=== PATIENT | female | born 1955 | race Caucasian/White ===

== ENCOUNTER → 2017-11-13 | Outpatient (CLI) | payer OTHER ==
[~2017-11-13] VITALS: Ht 162.6 cm; Wt 86.4 kg
[~2017-11-13] MED LIST: AMAR4TAB PO; BENZOCAINE 20% ORAL SPR 60 ML CAN OROPHARYNG ONE; CALC600T34 PO; FEXO180 PO; LEVO112T17 PO; LIDOCAINE HCL 2% JELLY 5 ML SYRINGE TOPICAL ONE; METF-324 PO; SERT100 PO; TAB-TAB PO; novolin 70/30 SC
[2017-11-13 07:43] VITALS: BP 137/65; PULSE 69; RESP 18; TEMP 98.4; O2SAT 99
== END ==
LOC: HEND 07:08
PROVIDERS: ATTEND Internal Medicine Gastroenterology
DX: K44.9 Diaphragmatic hernia without obstruction or gangrene (principal); K21.9 Gastro-esophageal reflux disease without esophagitis
CPT/HCPCS: 91010

== ENCOUNTER 2018-01-03 13:00 | Observation (INO) | payer OTHER ==
[~2018-01-03] VITALS: Ht 162.6 cm; Wt 89.2 kg
[2018-01-09] MEDS ORDERED: CALC1TAB87 PO (15:16)
[2018-01-09] MEDS ORDERED: FEXO15TA PO (15:19)
[2018-01-09] MEDS ORDERED: GLIM4TAB PO (15:19)
[2018-01-09] MEDS ORDERED: ZOLO100T PO (15:19)
[2018-01-09] MEDS ORDERED: DAILTAB38 PO (15:19)
[2018-01-09] MEDS ORDERED: METF1000 PO (15:19)
[2018-01-09] MEDS ORDERED: NOVO7030P2 SQ (15:19)
[2018-01-09] MEDS ORDERED: LEVO112T29 PO (15:19)
[2018-01-10] MEDS ORDERED: VITACAP7 PO (10:26)
[2018-01-10] MEDS ORDERED: ZOLO100T PO (10:26)
[2018-01-10] MEDS ORDERED: NOVOLOGSS SQ (10:26)
[2018-01-10] MEDS ORDERED: LUTE6CAP2 PO (10:26)
[2018-01-10] MEDS ORDERED: SIMV5TAB3 PO (10:26)
[2018-01-10] MEDS ORDERED: VENTAER INH (10:29)
[2018-01-10] MEDS ORDERED: LACTATED RINGER'S 1000 ML IV PRN (10:30)
[2018-01-10] MEDS ORDERED: CEFAZOLIN INJ 2,000 MG in SODIUM CHLORIDE 0.9% INJ 100 ML IV SCH (10:30)
[2018-01-10] MEDS ORDERED: SODIUM CHLORID 0.9% 500 ML IV PRN (10:30)
[2018-01-10] MEDS ORDERED: ONDANSETRON HCL 4 MG/2 ML VIAL IV PUSH SCH (10:30)
[2018-01-10] MEDS ORDERED: CHLORHEXIDINE GLUCONATE 2 % 1 PACK (2 CLOTHS) TOPICAL PRN (10:30)
[2018-01-10] MEDS ORDERED: ACETAMINOPHEN 1000 MG/100 ML 100 ML IV SCH (10:30)
[2018-01-10] MEDS ORDERED: METOPROLOL TARTRATE 25 MG TAB PO PRN (10:30)
[2018-01-10] MEDS ORDERED: POVIDONE IODINE 5% (ANTISEPSIS KIT) 4 APPLICATIONS EACH NARE PRN (10:30)
[2018-01-10] MEDS ORDERED: PROPOFOL 200 MG/20 ML AMP IV ONE (12:00)
[2018-01-10] MEDS ORDERED: ESMOLOL HCL 100 MG/10 ML VIAL IV ONE (12:00)
[2018-01-10] MEDS ORDERED: ONDANSETRON HCL 4 MG/2 ML VIAL IV ONE (12:00)
[2018-01-10] MEDS ORDERED: LACTATED RINGER'S 1000 ML INJ 1,000 ML IV ONE (12:00)
[2018-01-10] MEDS ORDERED: NORMOSOL R INJ 2,000 ML IV ONE (12:00)
[2018-01-10] MEDS ORDERED: LIDOCAINE HCL 1% PF 5 ML SYRINGE OTHER ONE (12:00)
[2018-01-10] MEDS ORDERED: PHENYLEPH/NS 1000 MCG/10 ML SYR IV ONE (12:00)
[2018-01-10] MEDS ORDERED: DEXAMETHASONE SOD PHOS 4 MG/ML VIAL IV ONE (12:00)
[2018-01-10] MEDS ORDERED: ROCURONIUM INJ 50 MG/5 ML SYRINGE IV PUSH ONE ×2 (12:00→18:11)
[2018-01-10] MEDS ORDERED: ceFAZolin INJ 1,000 MG VIAL ONE (14:03)
[2018-01-10] MEDS ORDERED: BUPIVACAINE/EPINEPHRINE 0.25% 50 ML VIAL ONE (14:05)
[2018-01-10] MEDS ORDERED: APREPITANT 40 MG CAP ONE (14:40)
[2018-01-10] MEDS ORDERED: SUGAMMADEX SODIUM 200 MG/2 ML VIAL IV PUSH ONE (18:11)
[2018-01-10] MEDS ORDERED: MORPHINE SULFATE 30 MG/30 ML PCA IV SCH (18:45)
[2018-01-10] MEDS ORDERED: MAGNESIUM HYDROXIDE SUSP 30 ML CUP PO PRN (18:45)
[2018-01-10] MEDS ORDERED: Post-op Orders (for Pharmacy) XX ONE (18:45)
[2018-01-10] MEDS ORDERED: ONDANSETRON HCL 4 MG/2 ML VIAL IV PUSH PRN (18:45)
[2018-01-10] MEDS ORDERED: NALOXONE HCL 0.4 MG/ML AMP IV PUSH PRN (18:45)
[2018-01-10] MEDS ORDERED: METOCLOPRAMIDE HCL 10 MG/2 ML VIAL IVS PRN (18:45)
[2018-01-10] MEDS ORDERED: SODIUM CHLORIDE 0.9% FLUSH 10 ML FLUSH IV FLUSH PRN (18:45)
[2018-01-10] MEDS ORDERED: PROMETHAZINE INJ 25 MG/ML VIAL ONE ×2 (19:00→19:36)
[2018-01-10] MEDS ORDERED: DO NOT ADM ANY ANTICOAGULANT DRUGS PRN (19:03)
[2018-01-10] MEDS ORDERED: *RESP: ALBUTEROL 2.5 MG/3 ML NEB (PRN) PERIprocedural Use ONLY NEB ONE (19:14)
[2018-01-10] MEDS ORDERED: MORPHINE SULFATE 4 MG/ML INJ ONE (19:25)
[2018-01-10] MEDS ORDERED: LORazepam 2 MG/ML VIAL ONE (19:46)
[2018-01-10] MEDS: metroNIDAZOLE 500 MG INJ 100 ML IV SCH (20:00)
[2018-01-10] MEDS: SODIUM CHLOR 0.9% 1000 ML INJ 1,000 ML IV SCH (20:00)
[2018-01-10] MEDS: SODIUM CHLORIDE 0.9% FLUSH 10 ML FLUSH IV FLUSH SCH (21:00)
[2018-01-10] MEDS: PCA - TOTAL MG MORPHINE DELIVERED PER SHIFT SCH (22:00)
[2018-01-10 22:45] VITALS: BP 112/81; PULSE 75; RESP 18; TEMP 98.3; O2SAT 96
[2018-01-11] VITALS (8 sets, daily range): BP systolic 93–125; BP diastolic 50–83; PULSE 71–95; RESP 17–20; TEMP 97.7–98.9; O2SAT 92–96
[2018-01-11] MEDS: metroNIDAZOLE 500 MG INJ 100 ML IV SCH ×2 (05:10→12:31)
[2018-01-11] MEDS: SODIUM CHLOR 0.9% 1000 ML INJ 1,000 ML IV SCH (06:00)
[2018-01-11] MEDS: PCA - TOTAL MG MORPHINE DELIVERED PER SHIFT SCH (06:00)
[2018-01-11] MEDS: SODIUM CHLORIDE 0.9% FLUSH 10 ML FLUSH IV FLUSH SCH ×2 (09:00→21:00)
[2018-01-11] MEDS ORDERED: DEXTROSE 50% IN WATER 50 ML VIAL(D50) IV PUSH PRN (10:15)
[2018-01-11] MEDS ORDERED: GLUCAGON 1 MG/ML VIAL OTHER PRN (10:15)
[2018-01-11] MEDS ORDERED: PILL SPLITTER OTHER PRN (10:30)
[2018-01-11] MEDS ORDERED: HYDR0.1S8 PO (11:40)
[2018-01-11] MEDS ORDERED: ACETAMINOPHEN 325MG/HYDROcodone 7.5MG/15ML UDC PO PRN (11:45)
[2018-01-11] MEDS: LEVOTHYROXINE SODIUM 112 MCG TAB PO SCH (12:32)
[2018-01-11] MEDS: SERTRALINE HCL 50 MG TAB PO SCH (12:32)
[2018-01-11] MEDS ORDERED: KETO10 PO (13:06)
--- NOTE | 2018-01-11 13:08 | HHI.PR ---
Subjective Subjective Notes Pain well controlled. Tolerating clears Objective Vitals/I&O Vital Signs Date Time Temp Pulse Resp B/P (MAP) Pulse Ox O2 Delivery O2 Flow Rate FiO2 01/11/18 11:55 97.8 78 18 93/50 (64) 93 01/10/18 20:45 Simple Mask 4 Abdomen: Post-op tenderness Extremities: Perfused Wound Wound : Wound Location: Abdomen Appearance: Clean & Dry A/P Assessment and Plan 62yo F POD#1 robot-assisted laparoscopic hiatal hernia repair -D/C BEEF BONER, transition to oral pain control -Increase to full liquids -Continue with frequent ambulation The exam, history, and the medical decision-making described in the above note were completed with the assistance of the mid-level provider. I reviewed and agree with the findings presented. I attest that I had a [id number] encounter with the patient on the same day, and personally performed and documented my assessment and findings in the medical record. Discharge Planning D/C home today Kenyetta Narvaez Jan 11, 2018 13:08 Nicolas Beard MD Jan 24, 2018 21:34
[2018-01-11] MEDS ORDERED: ENOXAPARIN SODIUM 40 MG/0.4 ML SYRINGE SQ SCH (18:00)
[2018-01-11] MEDS: ACETAMINOPHEN 325MG/HYDROcodone 7.5MG/15ML UDC PO PRN (22:32)
[2018-01-12 04:25] VITALS: BP 107/60; PULSE 67; RESP 17; TEMP 97.6; O2SAT 92
[2018-01-12 07:41] VITALS: BP 120/67; PULSE 69; RESP 19; TEMP 97.8; O2SAT 92
[2018-01-12] MEDS: SODIUM CHLORIDE 0.9% FLUSH 10 ML FLUSH IV FLUSH SCH (09:00)
[2018-01-12] MEDS: LEVOTHYROXINE SODIUM 112 MCG TAB PO SCH (09:12)
[2018-01-12] MEDS: SERTRALINE HCL 50 MG TAB PO SCH (09:13)
[2018-01-12] MEDS: ACETAMINOPHEN 325MG/HYDROcodone 7.5MG/15ML UDC PO PRN ×2 (10:27→16:58)
[2018-01-12 11:31] VITALS: BP 129/74; PULSE 83; RESP 19; TEMP 98.6; O2SAT 92
[2018-01-12 15:40] VITALS: BP 95/54; PULSE 78; RESP 19; TEMP 98.7; O2SAT 93
--- NOTE | 2018-02-20 12:51 | MP ---
cc: Nicolas Beard MD DATE OF OPERATION: 01/10/2018 DATE OF : 1955 DATE OF OPERATION: 01/10/2018. PREOPERATIVE DIAGNOSIS: Paraesophageal hernia with reflux. POSTOPERATIVE DIAGNOSIS: Paraesophageal hernia with reflux. PROCEDURE PERFORMED: 1. Robotic-assisted laparoscopic paraesophageal hernia repair with partial fundoplication with Bio-A mesh. 2. Hernia repair with partial fundoplication, 270 degree wrap. SURGEON: Nicolas Beard MD BOILER OR ENGINE OPERATOR: Dr. Stephan Olsen. ANESTHESIA: General endotracheal anesthesia. ESTIMATED BLOOD LOSS: Scant. FINDINGS: Large paraesophageal hernia. SPECIMENS: None. COMPLICATIONS: None. DESCRIPTION OF PROCEDURE: The patient was brought into the operating room and placed on the operating table in a supine position. A bilateral sequential inflation device was placed on the lower extremities. General anesthesia was instituted. Antibiotics were initiated. The abdomen was prepped and draped sterilely. A point 18 cm distal from the xiphoid in the midline was anesthetized with 0.25% Marcaine with epinephrine. A skin incision was made. A 12 mm OptiView port was placed under direct vision and pneumoperitoneum created. Under direct vision a 5 mm left upper quadrant, 8 mm robotic left upper quadrant, 8 mm robotic port in the right upper quadrant and a 5 mm port placed in the right upper quadrant. Prior to placement of all ports the skin and peritoneum were anesthetized with 0.25% Marcaine with epinephrine. The patient was placed in reverse Trendelenburg position left side up. A Socorro-Flex retractor was placed. The left lobe of the liver was retracted. Findings as above. 3-0 silk sutures were placed into the abdominal cavity as well as a Elma drain and Ray-Christen gauze. At this point the laparoscopic tower was removed from the patient's bedside and a da Marisa robot was docked at the patient's bedside. I then broke scrub and went to the console. The hepatogastric ligament was then opened. The stomach was retracted into the abdominal cavity. The left crura of the diaphragm was dissected inferiorly. A Elma drain was placed around the stomach to retract it into the abdominal cavity further. The crura of the diaphragm was dissected anteriorly and posteriorly both left and right. The hernia sac was retracted into the abdominal cavity. The hernia sac was excised. The GE junction was mobilized into the abdominal cavity, dissected out the distal esophagus and the mediastinum. The crura of the diaphragm was approximated with 0 silk suture in a [id number] manner. Three interrupted stitches were placed inferiorly. The da Marisa robot was then undocked. The laparoscopic tower was connected and brought back to bedside. The stan and gauze was removed from the abdominal cavity. The operative field inspected and hemostasis was present. The CO2 was released, all ports were removed. All skin incisions were closed with 4-0 Monocryl. The abdominal wall was cleaned and a sterile dressing placed. The patient was awakened and taken to the recovery room. All instrument and sponge counts were reported as correct at the end of the procedure. MD EREN Jonas/FELIPE , 07:17 PM , 07:53 PM
== END 2018-01-12 17:16 | disposition home or self-care (01) ==
LOC: HSDI 01-10 09:10 → INTOOBSV 01-10 09:10 → N06A 01-10 21:35
PROVIDERS: ADMIT Surgery; ATTEND Surgery
DX: K44.9 Diaphragmatic hernia without obstruction or gangrene (principal); Z86.73 Personal history of transient ischemic attack (TIA), and cerebral infarction without residual deficits; E78.5 Hyperlipidemia, unspecified; J45.909 Unspecified asthma, uncomplicated; E11.9 Type 2 diabetes mellitus without complications
CPT/HCPCS: 00790; 43282; 82948; 94150; 96365; 96367; 96372; 96376; G0378; J0131; J0690; J1100; J1650; J2060; J2270; J2370; J2405; J2550; J3010; J7030; J7120; J7613; J8501

== ENCOUNTER 2018-08-06 15:34 | Inpatient (IN) ==
[2018-08-06] MEDS ORDERED: Bisacodyl 10 MG Supp RECTAL PRN (17:49)
[2018-08-06] MEDS ORDERED: Acetaminophen 325 MG Tablet PO PRN (17:49)
[2018-08-06] MEDS ORDERED: Temazepam 15 MG Capsule PO PRN (17:49)
[2018-08-06] MEDS ORDERED: Dextrose 50% in Water 50 ML Vial IV.PUSH PRN (17:54)
[2018-08-06] MEDS ORDERED: Morphine Inj 4 MG/ML Vial IV.PUSH PRN (18:35)
--- NOTE | 2018-08-06 18:47 | P.HPIM ---
History of Present Illness Primary Care Physician: UNKNOWN History of Present Illness: Pt 62 yo female with Diabetes who underwent paraesophageal hernia repair in 01/24 at [place]. Pt says post op she had alot of severe nausea and vomiting from anesthesia. After dc she had problems with DKA and severe n/v with recurrent admissions to [facility]. She underwent EGD and balloon dilation on 07/[address] Vaca. Pt was readmitted on 08/02 and had another balloon dilation on 08/03. On 08/05 her Esophagram showed severe stricture at the GE junction felt to be extrinsic compression from large paraesophageal hernia. Pt was transferred here for reduction by Dr Beard. Her bg on arrival is 114. her daughter is at bedside. She has been tolerating a full liquid diet. PMH: gerd diabetes. recurrent dka hgba1c 07/25 was 6.7 paraesophageal hernia with repair 01/24 jonas thyroiditis depression blepharoplasty cholecystectomy breast bx gurvinder asthma allergic rhinitis gerd SH: quit etoh 1month aga before that 1 glass whiskey per day quit tobacco 4 1/2 yrs ago after smoking at least 1ppd from age 15 FH: noncontributory Diagnosis (1) Paraesophageal hernia: (2) Diabetes: Inpatient Certification Inpatient Certification: I certify that the inpatient services were ordered in accordance with Medicare regulations governing the order. This includes certification that hospital inpatient services are reasonable and necessary and in the case of services not specified as inpatient-only under 42 CFR 419.22(n), that they are appropriately provided as inpatient services in accordance to with the 2-midnight benchmark under 43 CFR 412.3(e) Estimated Total Length of Stay (Days): 3 Plans for Post Hospital Care: Home Medications and Allergies Allergies Allergy/AdvReac Type Severity Reaction Status Date / Time mushroom Allergy Severe itch/rash Unverified 05/23/17 21:53 estradiol Allergy Intermediate RAPID Unverified 05/23/17 21:53 HEARTRATE estrogens, conjugated Allergy Intermediate RAPID Unverified 05/23/17 21:53 HEARTRATE nickel Allergy Skin Verified 08/06/18 17:54 Discoloration erythromycin base AdvReac Diarrhea Verified 08/06/18 17:54 BEE STINGS Allergy Severe throat Uncoded 01/10/18 10:18 swelling [facility] [place] Allergy Intermediate can't Uncoded 01/10/18 10:18 breath bandaids Allergy Mild red rash Uncoded 11/14/07 06:51 Home Medications Medication Instructions Recorded Confirmed Type albuterol sulfate [Ventolin HFA] INHALATION Q4HR 08/06/18 History levothyroxine 100 mcg PO DAILY 08/06/18 08/06/18 History lisinopril 5 mg PO DAILY 08/06/18 08/06/18 History omeprazole 40 mg PO DAILY 08/06/18 08/06/18 History promethazine [Phenergan] 25 mg [place] Q6H PRN 08/06/18 08/06/18 History sertraline [Zoloft] 75 mg PO DAILY 08/06/18 08/06/18 History simvastatin 5 mg PO QPM 08/06/18 08/06/18 History Active Medications: Active Medications Acetaminophen (Tylenol) 650 mg PO Q4H PRN PRN Reason: Temp > 100.4 Bisacodyl (Dulcolax Supp) 10 mg RECTAL DAILY PRN PRN Reason: SEVERE CONSITIPATION Dextrose (D50w Vial) 50 ml IV.PUSH UNSCH PRN PRN Reason: PER HYPOGLYCEMIA PROTOCOL Enoxaparin Sodium (Lovenox Inj) 40 mg SQ Q24H [facility] Glucagon (Glucagon Inj) 1 mg OTHER PRN PRN PRN Reason: for Hypoglycemia Protocol Potassium Chloride/Dextrose/Sod Cl (D5w/Ns + Kcl 20 Meq Inj) 1,000 mls @ 50 mls /hr IV.CONT .Q20H [facility] Insulin Aspart (Novolog Insulin Correctional Sugar Inj) 0 unit SQ Q4H [facility]; Protocol Levothyroxine Sodium (Synthroid) 100 mcg PO DAILY@0600 [facility] Morphine Sulfate (Morphine Inj) 2 mg IV.PUSH Q3H PRN PRN Reason: pain 3-10 Ondansetron HCl (Zofran Inj) 4 mg IV.PUSH Q6H PRN PRN Reason: NAUSEA OR VOMITING Pantoprazole Sodium (Protonix Inj) 40 mg IV.PUSH Q12H [facility] Promethazine HCl (Phenergan) 25 mg PO Q6H PRN PRN Reason: n/v not relieved with zofran Sertraline HCl (Zoloft) 75 mg PO DAILY [facility] Temazepam (Restoril) 15 mg PO HS PRN PRN Reason: INSOMNIA Physical Exam Narrative: heart reg lung cta abd s/nt/nabs ext no edema Caprini VTE Risk Assessment Caprini VTE Risk Assessment: Moderate/High Risk (score >= 2) Caprini Risk Assessment Model: Point Value = 1 Point Value = 2 Point Value = 3 Point Value = 5 Age 41-60 Minor surgery BMI > 25 kg/m2 Swollen legs Varicose veins or History of unexplained or recurrent spontaneous Oral contraceptives or hormone replacement Sepsis (< 1 month) Serious lung disease, including pneumonia (< 1 month) Abnormal pulmonary function Acute myocardial infarction Congestive heart failure (< 1 month) History of inflammatory bowel disease Medical patient at bed rest Age 61-74 Arthroscopic surgery Major open surgery (> 45 min) Laparoscopic surgery (> 45 min) Malignancy Confined to bed (> 72 hours) Immobilizing plaster cast Central venous access Age >= 75 History of VTE Family history of VTE Factor V Leiden Prothrombin [id number] Lupus anticoagulant Anticardiolipin antibodies Elevated serum homocysteine Heparin-induced thrombocytopenia Other congenital or acquired thrombophilia Stroke (< 1 month) Elective arthroplasty Hip, pelvis, or leg fracture Acute spinal cord injury (< 1 month) Prophylaxis Regimen: Total Risk Factor Score Risk Level Prophylaxis Regimen 0-1 Low Early ambulation 2 Moderate Order ONE of the following: *Sequential Compression Device (SCD) *Heparin 5000 units SQ BID 3-4 Higher Order ONE of the following medications: *Heparin 5000 units SQ TID *Enoxaparin/Lovenox 40 mg SQ daily (WT < 150 kg, CrCl > 30 mL/min) *Enoxaparin/Lovenox 30 mg SQ daily (WT < 150 kg, CrCl > 10-29 mL/min) *Enoxaparin/Lovenox 30 mg SQ BID (WT < 150 kg, CrCl > 30 mL/min) AND/OR *Sequential Compression Device (SCD) 5 or more Highest Order ONE of the following medications: *Heparin 5000 units SQ TID (Preferred with Epidurals) *Enoxaparin/Lovenox 40 mg SQ daily (WT < 150 kg, CrCl > 30 mL/min) *Enoxaparin/Lovenox 30 mg SQ daily (WT < 150 kg, CrCl > 10-29 mL/min) *Enoxaparin/Lovenox 30 mg SQ BID (WT < 150 kg, CrCl > 30 mL/min) AND *Sequential Compression Device (SCD) Assessment and Plan Assessment (1) Paraesophageal hernia: Code(s): K44.9 - Diaphragmatic hernia without obstruction or gangrene Status: Acute (2) Diabetes: Code(s): E11.9 - Type 2 diabetes mellitus without complications Status: Acute Plan consult to Dr Matthews. planned hernia reduction for Wed. cont liquid diet d5ns with kcl chec, bmp now and cmp, cbc, coags in AM monitor bg q4h for now and SSI. add basal as needed. insulin pump off. iv ppi. prn anti emetics cont ssri and thyroid home meds. dvt prophyaxis. lovenox. prn pain control H&P: Quality VTE Deep Vein Thrombosis/Pulmonary Embolism Present on Admission: No
[2018-08-06] MEDS: KCL 20 mEq/D5W/NaCl 0.9% Inj 1,000 ML IV.CONT SCH (19:05)
[2018-08-06 20:18] LABS: Calcium 7.8 mg/dL (8.5-10.1); Carbon Dioxide 22.4 meq/L (21.0-32.0); Potassium 3.6 meq/L (3.5-5.1)
[2018-08-06] MEDS ORDERED: Insulin NovoLOG Aspart Correctional Sugar Inj SQ SCH (21:00)
[2018-08-06] MEDS ORDERED: Senna/Docusate Sodium 8.6/50 MG Tablet PO SCH (21:00)
[2018-08-06] MEDS: Insulin NovoLOG Aspart Correctional Sugar Inj SQ SCH (21:07)
[2018-08-06] MEDS: Pantoprazole Inj 40 MG Vial IV.PUSH SCH (21:08)
[2018-08-07] MEDS: Insulin NovoLOG Aspart Correctional Sugar Inj SQ SCH ×5 (05:10→20:56)
[2018-08-07 07:25] LABS: Baso # (Auto) 0.1 th/mm3 (0.0-0.2); Baso % (Auto) 1.1 % (0.0-2.0); Eos # (Auto) 0.5 th/mm3 (0.0-0.4); Hematocrit 33.9 % (35.0-46.0); Hemoglobin 11.7 gm/dL (11.6-15.3); Lymph # (Auto) 1.8 th/mm3 (1.0-4.8); Lymph % (Auto) 34.8 % (9.0-44.0); Mean Corpuscular HGB Conc 34.4 % (32.0-36.0); Mean Corpuscular Hemoglobin 32.7 pg (27.0-34.0); Mean Platelet Volume 8.5 fL (7.0-11.0); Mono # (Auto) 0.4 th/mm3 (0.0-0.9); Mono % (Auto) 7.9 % (0.0-8.0); Neut # (Auto) 2.4 th/mm3 (1.8-7.7); Neut % (Auto) 47.2 % (16.0-70.0); Platelet Count 220 th/mm3 (150-450); Red Blood Count 3.57 mil/mm3 (4.00-5.30); Red Cell Distribution Width 13.8 % (11.6-17.2); White Blood Count 5.1 th/mm3 (4.0-11.0)
[2018-08-07 07:26] LABS: INR 1.1 Ratio; Prothrombin Time 11.3 sec (9.8-11.6)
[2018-08-07] MEDS: Levothyroxine 100 MCG Tablet PO SCH (07:32)
[2018-08-07 07:44] LABS: Albumin 2.7 g/dL (3.4-5.0); Anion Gap 10 meq/L (5-15); Aspartate Aminotransferase 20 U/L (15-37); Blood Urea Nitrogen 3 mg/dL (7-18); Calcium 7.5 mg/dL (8.5-10.1); Carbon Dioxide 24.5 meq/L (21.0-32.0); Chloride 109 meq/L (98-107); Glomerular Filtration Rate Greater Than 89 mL/min (>89); Glucose,Random 101 mg/dL (74-106); Magnesium 1.9 mg/dL (1.5-2.5); Potassium 3.4 meq/L (3.5-5.1); Sodium 143 meq/L (136-145)
[2018-08-07 07:46] LABS: Alanine Aminotransferase 18 U/L (10-53)
[2018-08-07 07:48] LABS: Alkaline Phosphatase 73 U/L (45-117)
--- NOTE | 2018-08-07 08:36 | P.PNIM ---
Subjective Interval history: Follow up: recurrent N/V after hiatal hernia repair 01/24 Patient denies N/V at this time, tolerating liquid diet looking forward to surgery tomorrow with Dr. Matthews Physical Exam Vital signs: Last Vital Signs Temp 98.4 F 08/07/18 07:22 Pulse 71 08/07/18 07:22 Resp 16 08/07/18 07:22 BP 114/69 08/07/18 07:22 Pulse Ox 95 08/07/18 07:22 Narrative: heart reg lung cta abd s/nt/nabs ext no edema Results Labs CBC & Chem 7: 08/07/18 07:00 08/07/18 07:00 Assessment and Plan Assessment (1) Paraesophageal hernia: Code(s): K44.9 - Diaphragmatic hernia without obstruction or gangrene Status: Acute (2) Diabetes: Code(s): E11.9 - Type 2 diabetes mellitus without complications Status: Acute Plan consult to Dr Matthews- >planned hernia reduction for Wed. cont liquid diet d5ns with kcl K 3.4 replaced monitor bg q4h for now and SSI. add basal as needed. insulin pump off. iv ppi. prn anti emetics cont ssri and thyroid home meds. dvt prophyaxis. lovenox. prn pain control Progress Note: Quality VTE Deep Vein Thrombosis/Pulmonary Embolism Present on Admission: No
[2018-08-07] MEDS ORDERED: Enoxaparin Inj 40 MG/0.4 ML Syringe SQ SCH (09:00)
[2018-08-07] MEDS ORDERED: Potassium Chloride 25 MEQ Effervescent Tablet PO ONE (09:00)
[2018-08-07] MEDS: Pantoprazole Inj 40 MG Vial IV.PUSH SCH ×2 (09:09→18:30)
[2018-08-07] MEDS: Sertraline 50 MG Tablet PO SCH (09:10)
[2018-08-07] MEDS ORDERED: Potassium Chlor 10 mEq Premix 10 MEQ/100 ML PIGGYBACK IV.SIG SCH (10:15)
[2018-08-07] MEDS ORDERED: Potassium Chlor 20 mEq Premix 20 MEQ/100 ML PIGGYBACK IV.SIG ONE (10:20)
[2018-08-07] MEDS: KCL 20 mEq/D5W/NaCl 0.9% Inj 1,000 ML IV.CONT SCH ×2 (12:33→15:03)
[2018-08-08] MEDS: Insulin NovoLOG Aspart Correctional Sugar Inj SQ SCH ×4 (05:39→17:36)
[2018-08-08] MEDS: Levothyroxine 100 MCG Tablet PO SCH (05:49)
[2018-08-08] MEDS: Pantoprazole Inj 40 MG Vial IV.PUSH SCH (05:59)
--- NOTE | 2018-08-08 09:40 | P.PNIM ---
Subjective Interval history: no new complaints Physical Exam Vital signs: Last Vital Signs Temp 97.9 F 08/08/18 08:00 Pulse 68 08/08/18 08:00 Resp 17 08/08/18 08:00 BP 102/63 08/08/18 08:00 Pulse Ox 92 L 08/08/18 08:00 Narrative: heart reg lung cta abd s/nt/nabs ext no edema Results Labs CBC & Chem 7: 08/07/18 07:00 08/07/18 07:00 Assessment and Plan Assessment (1) Paraesophageal hernia: Code(s): K44.9 - Diaphragmatic hernia without obstruction or gangrene Status: Acute (2) Diabetes: Code(s): E11.9 - Type 2 diabetes mellitus without complications Status: Acute Plan consult to Dr Matthews- >planned hernia reduction for today. d5ns with kcl monitor bg q4h for now and SSI. add basal as needed. insulin pump off and will plan to resume after dc Anesthesia will need to be more agressive with perioperative anti emetics. iv ppi. prn anti emetics cont ssri and thyroid home meds. dvt prophyaxis. lovenox. prn pain control Progress Note: Quality VTE Deep Vein Thrombosis/Pulmonary Embolism Present on Admission: No
[2018-08-08 10:24] LABS: Calcium 7.9 mg/dL (8.5-10.1); Carbon Dioxide 23.5 meq/L (21.0-32.0); Potassium 4.1 meq/L (3.5-5.1)
[2018-08-08] MEDS ORDERED: Bupivacaine/Epinephrine 0.5% Inj 50 ML Vial ONE (10:26)
[2018-08-08] MEDS ORDERED: ceFAZolin 2 GM Premix Inj 2 GM/50 ML PIGGYBACK IV.SIG ONE (10:53)
[2018-08-08] MEDS ORDERED: Scopalamine 1.5 MG Patch T-DERMAL ONE (10:53)
[2018-08-08] MEDS ORDERED: Neostigmine Inj 5 MG/5 ML Syringe IV.PUSH ONE (11:06)
[2018-08-08] MEDS ORDERED: Sodium Chlor 0.9% Inj 500 ML IV.CONT ONE (11:06)
[2018-08-08] MEDS ORDERED: Glycopyrrolate Inj 1 MG/5 ML Syringe IV.PUSH ONE (11:06)
[2018-08-08] MEDS ORDERED: Succinylcholine Inj 100 MG/5 ML Syringe IV.PUSH ONE (11:06)
[2018-08-08] MEDS ORDERED: Normosol-R pH 7.4 Inj 2,000 ML IV.CONT ONE (11:06)
[2018-08-08] MEDS ORDERED: Propofol Inj 500 MG/50 ML Vial ONE ×4 (11:09→16:00)
--- NOTE | 2018-08-08 12:35 | XR ---
EXAM DATE: 08/08/2018 12:05 PM EDT AGE/SEX: 62 years / Female INDICATIONS: Evaluate for pneumothorax. Possible paratracheal fistula. CLINICAL DATA: This is the patient's initial encounter. Patient reports that signs and symptoms have been present for 1 day and indicates a pain score of Nonresponsive. MEDICAL/SURGICAL HISTORY: Non-responsive. Non-responsive. COMPARISON: No prior exams available for comparison. FINDINGS: ET tube in good position. Right lung clear. Small apparent pneumothorax left base. The heart is minimally enlarged. Pulmonary vascularity is normal. CONCLUSION: ETT in good position. Apparent small left pneumothorax. Given the history of the chest with contrast would be of benefit. Electronically signed by: James Herrera MD 08/08/2018 12:33 PM EDT
[2018-08-08] MEDS ORDERED: fentaNYL Citrate Inj 250 MCG/5 ML Ampul ONE ×2 (13:01→14:23)
[2018-08-08] MEDS ORDERED: fentaNYL Citrate Inj 100 MCG/2 ML Ampul ONE (17:34)
[2018-08-08] MEDS ORDERED: Promethazine 25 MG Supp RECTAL PRN (17:59)
[2018-08-08] MEDS ORDERED: Bisacodyl 10 MG Supp RECTAL PRN (17:59)
[2018-08-08] MEDS ORDERED: Post-op Orders (for Pharmacy) OTHER ONE (17:59)
[2018-08-08] MEDS ORDERED: Insulin Regular (For Infusion) 100 UNIT in Sodium Chlor 0.9% Inj 99 ML IV.CONT PRN (18:22)
[2018-08-08] MEDS ORDERED: Dextrose 50% in Water 50 ML Vial IV.PUSH PRN (18:22)
--- NOTE | 2018-08-08 18:30 | P.CONCC ---
History of Present Illness Service: Critical care Consult date: 08/08/18 Requesting Physician: Nicolas Beard Reason for Consult: S/p paraesophageal hernia repair, severe hyperglycemia Primary Care Provider: UNKNOWN Chief Complaint: Paraesophageal hernia repair History of Present Illness: Patient is a 62-year-old female with diabetes on insulin pump, recurrent DKA, and history of paraesophageal hernia repair in 01/24 at [place]. At that time after discharge patient had problems with DKA with multiple admissions to [facility]. Also underwent EGD and balloon dilation on 07/[address] Vaca. Pt was readmitted on 08/02 and repeat balloon dilation on 08/03. Esophagogram on 08/05 showed severe stricture at the GE junction felt to be extrinsic compression from large paraesophageal hernia. Pt was transferred here to [place] for repair by Dr Beard. Patient underwent robotic assisted laparoscopic paraesophageal hernia repair by Dr. Matthews today, blood loss was less than 50 mL. Postop patient was extubated and moved to the PACU. Critical care medicine was consulted for assist with postop management and for hyperglycemia. Patient's blood sugar postop was 478. I evaluated the patient in the PACU. Patient is still slightly somnolent from anesthesia. She has NG tube in place, also has left chest tube as the thorax was entered during repair. Patient has right JAQUELINE drains in place with minimal sanguinous output. I have started patient on insulin infusion algorithm 1 and will admit patient to ICU as she is n.p.o. As the initial blood sugar was 478, I will get a stat CMP and beta hydroxybutyrate to rule out DKA Review of Systems All other systems reviewed negative except as stated in HPI PMFSH - History History Provided By: Patient - Medical History Medical History: Medical History (Last Reviewed 08/08/18 @ 18:28 by Amberly Villalobos MD) FHx: cholecystectomy GERD (gastroesophageal reflux disease) Hiatal hernia History of anesthesia reaction Hypothyroidism Insulin pump in place - Tobacco History Second Hand Smoke Exposure: No Tobacco Use In Past 30 Days: No Smoking Status: Former smoker Tobacco Type: Cigarettes - Alcohol History How Often Do You Have a Drink Containing Alcohol: Never - Substance Use History Substance History: No History of Abuse - Immunization History Tetanus Immunization: >5 Years Hx Influenza Vaccine This Season: Yes Medications and Allergies Active Medications: Active Medications Acetaminophen (Tylenol) 650 mg PO Q4H PRN PRN Reason: Temp > 100.4 Al Hydroxide/Mg Hydroxide (Milk Of Magnesia Liq) 30 ml PO Q12H PRN PRN Reason: Mild Constipation Bisacodyl (Dulcolax Supp) 10 mg RECTAL DAILY PRN PRN Reason: SEVERE CONSITIPATION Dextrose (D50w Vial) 50 ml IV.PUSH UNSCH PRN PRN Reason: PER HYPOGLYCEMIA PROTOCOL Enoxaparin Sodium (Lovenox Inj) 40 mg SQ Q24H [facility] Glucagon (Glucagon Inj) 1 mg OTHER PRN PRN PRN Reason: for Hypoglycemia Protocol Potassium Chloride/Dextrose/Sod Cl (D5w/Ns + Kcl 20 Meq Inj) 1,000 mls @ 50 mls /hr IV.CONT .Q20H [facility] Last Admin: 08/07/18 15:03 Dose: Not Given Cefazolin Sodium 1,000 mg/ (Sodium Chloride) 100 mls @ 200 mls/hr IV.SIG Q8H [facility] Stop: 08/09/18 16:29 Insulin Aspart (Novolog Insulin Correctional Sugar Inj) 0 unit SQ Q4H [facility]; Protocol Last Admin: 08/08/18 17:36 Dose: 12 unit Lactulose (Lactulose Liq) 30 ml PO DAILY PRN PRN Reason: SEVERE CONSITIPATION Levothyroxine Sodium (Synthroid) 100 mcg PO DAILY@0600 [facility] Last Admin: 08/08/18 05:49 Dose: 100 mcg Miscellaneous Information ([facility] Nursing Information) 1 each OTHER UNSCH PRN PRN Reason: SEE LABEL COMMENTS Stop: 08/09/18 18:00 Morphine Sulfate (Morphine Inj) 2 mg IV.PUSH Q3H PRN PRN Reason: pain 3-10 Ondansetron HCl (Zofran Odt) 4 mg PO Q6H PRN PRN Reason: NAUSEA OR VOMITING Ondansetron HCl (Zofran Inj) 4 mg IV.PUSH Q6H PRN PRN Reason: NAUSEA OR VOMITING Pantoprazole Sodium (Protonix Inj) 40 mg IV.PUSH Q12H [facility] Last Admin: 08/08/18 05:59 Dose: 40 mg Promethazine HCl (Phenergan) 25 mg PO Q6H PRN PRN Reason: NAUSEA OR VOMITING Promethazine HCl (Phenergan Supp) 25 mg RECTAL Q6H PRN PRN Reason: NAUSEA OR VOMITING Senna/Docusate Sodium (Sara-Colace) 1 tab PO BID [facility] Sennosides (Senokot) 17.2 mg PO Q12H PRN PRN Reason: Moderate Constipation Sertraline HCl (Zoloft) 75 mg PO DAILY [facility] Last Admin: 08/07/18 09:10 Dose: 75 mg Temazepam (Restoril) 15 mg PO HS PRN PRN Reason: INSOMNIA Allergies Allergy/AdvReac Type Severity Reaction Status Date / Time mushroom Allergy Severe itch/rash Unverified 05/23/17 21:53 estradiol Allergy Intermediate RAPID Unverified 05/23/17 21:53 HEARTRATE estrogens, conjugated Allergy Intermediate RAPID Unverified 05/23/17 21:53 HEARTRATE nickel Allergy Skin Verified 08/06/18 17:54 Discoloration erythromycin base AdvReac Diarrhea Verified 08/06/18 17:54 BEE STINGS Allergy Severe throat Uncoded 01/10/18 10:18 swelling [facility] [place] Allergy Intermediate can't Uncoded 01/10/18 10:18 breath bandaids Allergy Mild red rash Uncoded 11/14/07 06:51 Home Medications Medication Instructions Recorded Confirmed Type albuterol sulfate [Ventolin HFA] INHALATION Q4HR 08/06/18 History levothyroxine 100 mcg PO DAILY 08/06/18 08/06/18 History lisinopril 5 mg PO DAILY 08/06/18 08/06/18 History omeprazole 40 mg PO DAILY 08/06/18 08/06/18 History promethazine [Phenergan] 25 mg ID Q6H PRN 08/06/18 08/06/18 History sertraline [Zoloft] 75 mg PO DAILY 08/06/18 08/06/18 History simvastatin 5 mg PO QPM 08/06/18 08/06/18 History Physical Exam Vital signs: Vital Signs 08/07/18 20:00 08/08/18 00:00 08/08/18 03:13 Temperature 98 F 97.9 F 97.9 F Pulse Rate 72 78 67 Respiratory Rate 18 17 20 Blood Pressure 116/67 118/65 100/63 Pulse Oximetry 95 94 L 91 L 08/08/18 08:00 08/08/18 17:07 Temperature 97.9 F 96.9 F L Pulse Rate 68 91 H Respiratory Rate 17 18 Blood Pressure 102/63 133/62 Pulse Oximetry 92 L 96 Intake & Output 08/07/18 08/08/18 08/08/18 18:59 06:59 18:59 Intake Total 1572 / 1572 400 / 400 3500 / 3500 Output Total 880 / 880 Balance 1572 / 1572 395 / 395 2620 / 2620 Weight 79 kg Intake: IV 1100 / 1100 D5W/NS + KCL 20 mEq Inj 1,000 1000 / 1000 ML @ 50 mls/hr IV.CONT .Q20H [facility] Rx#:[id number] KCl 20 mEq Premix Inj 20 meq In 100 / 100 100 ml @ 50 mls/hr IV.SIG ONCE ONE Rx#:[id number] Oral 472 / 472 400 / 400 Anesthesia Amount 3500 / 3500 Output: Urine 4 / Stool / Estimated Blood Loss 250 / 250 Urine Amount (Catheter) 600 / 600 Indwelling Urethral Catheter 600 / 600 Wound Drainage # 1 Left Chest Other: # Voids 2 Date of Last Bowel Movement 08/06/18 08/07/18 Weight On Admission 79.1 kg Narrative: GEN: Lying in PACU bed no acute distress. HEENTT: Pupils are reactive. Oral cavity is dry. NG tube in place NECK: Supple. LUNGS: Air entry equal bilaterally no wheezes or crackles. Left chest tube in place with serosanguineous output HEART: S1 and S2 normal, no murmurs, normotensive ABDOMEN: Soft. Nontender. Trocar sites C/D/I. Right JAQUELINE drain with serosanguineous output EXTREMITIES: No pedal edema. NEUROLOGIC: Alert awake no focal deficits. Follows commands. Normal strength - Urinary Catheter Management Indwelling Urethral Catheter Cath placed during this visit: yes Reason for continuing: Hourly intake/output Insertion date: 08/08/18 Insertion time: 11:20 Septic Shock Reassessment Septic shock perfusion: reassessment completed Assessment and Plan - Assessment and Plan Plan: ASSESSMENT: Status post laparoscopic paraesophageal hernia repair Severe hyperglycemia, rule out DKA Myrtle thyroiditis CLAIRE Asthma GERD History of esophageal dilatation PLAN: NEURO: -IV morphine as needed for pain control RESP: -DuoNeb every 2 hours as needed -Aggressive pulmonary toilet -Left chest tube management per Dr. Matthews CV: -IV fluids with LR at 100 cc/h -Monitor vitals closely per ICU protocol GI: -N.p.o., IV Protonix -Postop management per Dr. Matthews : -Monitor renal function closely. Maintain Ureña catheter for accurate intake output. ID: -Perioperative antibiotics per Dr. Matthews HEME: -Monitor CBC, coags ENDO: -Patient is hyperglycemic with blood sugar 478, check stat CMP beta hydroxybutyrate -Rule out DKA -Patient is n.p.o. start IV insulin non-DKA protocol algorithm 1 -Electrolyte replacement per protocol -Change thyroid supplements to IV at half dose, 50 mcg daily PROPH: -Bilateral lower extremity SCDs. IV Protonix -Chemical DVT prophylaxis only when cleared by surgery Level 3 consult Code Status: Full Discussed Condition With: Dr. Matthews
--- NOTE | 2018-08-08 18:57 | XR ---
EXAM DATE: 08/08/2018 6:28 PM EDT AGE/SEX: 62 years / Female INDICATIONS: Post left chest tube placement CLINICAL DATA: This is the patient's initial encounter. Patient reports that signs and symptoms have been present for 1 day and indicates a pain score of Nonresponsive. MEDICAL/SURGICAL HISTORY: Non-responsive. Non-responsive. COMPARISON: C, CHEST 1V SINGLE AP, 08/08/2018. . FINDINGS: A single AP portable semierect view of the chest was obtained and demonstrates interval placement of a left-sided chest tube. The previous noted basilar pneumothorax is no longer visualized. There is ap parent mild volume loss in left hemithorax. The heart size is within normal limits. There is abnormal opacity at the left lung base with obscuration of the left hemidiaphragm. The left costophrenic angl e is blunted. The right lung is clear. The previous noted endotracheal tube is been removed. There is been placement of a nasogastric tube which is seen coursing through the esophagus and stomach. CONCLUSION: 1. Interval placement of left-sided chest tube with no visualized pneumothorax on the current study. 2. Interval extubation and placement of nasogastric tube. 3. Abnormal opacity at the left lung base with obscuration of left hemidiaphragm and blunting of the left costophrenic angle which could indicate a small effusion. Electronically signed by: Jairo Simpson MD 08/08/2018 6:56 PM EDT
[2018-08-08] MEDS ORDERED: Potassium Chloride 25 MEQ Effervescent Tablet PO PRN (18:58)
[2018-08-08] MEDS ORDERED: Potassium Phosphate Inj 30 MMOL in Sodium Chlor 0.9% Inj 250 ML IV.SIG PRN (18:58)
[2018-08-08] MEDS ORDERED: Potassium Phosphate 500 MG Soluble Tablet PO PRN ×2 (18:58)
[2018-08-08] MEDS ORDERED: Magnesium Sulfate Inj 4 GM in Sodium Chlor 0.9% Inj 92 ML IV.SIG PRN (18:58)
[2018-08-08] MEDS ORDERED: Magnesium Oxide 400 MG Tablet PO PRN (18:58)
[2018-08-08] MEDS ORDERED: Potassium Chlor 40 mEq Premix 40 MEQ/100 ML PIGGYBACK IV.SIG PRN ×2 (18:58)
[2018-08-08] MEDS ORDERED: Magnesium Sulfate Inj 2 GM in Sodium Chlor 0.9% Inj 96 ML IV.SIG PRN (18:58)
[2018-08-08] MEDS ORDERED: Potassium Chlor 20 mEq Premix 20 MEQ/100 ML PIGGYBACK IV.SIG PRN ×2 (18:58)
[2018-08-08] MEDS ORDERED: Sodium Phosphate Inj 30 MMOL in Sodium Chlor 0.9% Inj 250 ML IV.SIG PRN (18:58)
--- NOTE | 2018-08-08 20:04 | MP ---
cc: Nicolas Beard MD DATE OF OPERATION: 08/08/2018 PREOPERATIVE DIAGNOSIS: Recurrent paraesophageal hernia with partial obstruction. POSTOPERATIVE DIAGNOSIS: Recurrent paraesophageal hernia with partial obstruction. PROCEDURE PERFORMED: 1. Robot-assisted laparoscopic reduction and repair of paraesophageal hernia with gastropexy. 2. Placement of left chest tube, 28-Hungarian. SURGEON: Nicolas Beard MD ANESTHESIA: General endotracheal anesthesia. ESTIMATED BLOOD LOSS: Scant. FINDINGS: The patient had approximately a third of her stomach within her chest including the patient's prior wrap with extensive inflammation adhesions around it. During the dissection, the left pleural cavity was entered. As a result, a chest tube was placed. SPECIMENS: None. COMPLICATIONS: None. DESCRIPTION OF PROCEDURE: The patient was brought to the operating room, placed on the operating table in supine position. Bilateral sequential inflation device were placed on the lower extremities. General anesthesia instituted. A Ureña catheter placed. Antibiotics initiated. The abdomen was prepped and draped sterilely. The patient's prior scars were anesthetized with 0.25% Marcaine with epinephrine. A skin incision was made in the epigastric scar. A 5 mm Optiview port placed under direct vision and pneumoperitoneum created. Under direct vision, a 5 mm left upper quadrant, 8 mm left upper quadrant robotic, 8 mm right upper quadrant robotic port, and a 5 mm right upper quadrant port were placed. Prior to placement of all ports, the skin and peritoneum anesthetized with 0.25% Marcaine with epinephrine. The patient was placed in reverse Trendelenburg position. The Socorro-Flex retractor was placed, and the left lobe of the liver was retracted. There were adhesions of this left lobe to the right crura. This was taken down using the Harmonic scalpel; 0 silk sutures were placed in the abdominal cavities as well as a Alex drain and Ray-Christen gauze. The laparoscopic tower was then removed from the patient's bedside. The da Marisa robot was brought into place, brought to the bedside and docked. I then broke scrub and went to the console. Dissection was started. The patient had extensive adhesions of the stomach to the crura of the diaphragm. Attempts were made at manipulating the stomach. The stomach serosa tore easily during manipulation. The crura was dissected on the right, placed posterior to the prior wrap, was dissected. Attention then focused on the left. Attempt to retrieve and retracted stomach contents to the abdomen were made and dissected out the left crura. A [place] drain was placed. This was placed around the stomach. Manipulations were made to retract the stomach into the abdominal cavity. All these attempts at manipulating the stomach into the abdominal cavity was difficult, and there were some serosal tears to the stomach. At this point, it was decided to convert back to laparoscopic operation, straight laparoscopic. The robot was undocked. The laparoscopic tower was brought back to the patient's bedside, and I then scrubbed back in, dissecting out to the crura anteriorly. Once this was done, the left pleural cavity was entered. At this point, it was decided to place a chest tube as the patient's saturations had decreased. The left chest was prepped and draped, and a skin incision was made in the anterior axillary line. The chest cavity was entered with a Moriah clamp, and a 20-Hungarian chest tube was placed and secured with 0 silk sutures. I then rescrubbed and went back to the patient's bedside. Once the space was then dissected anteriorly, it was noted that the wrap was adhesed to the pleura. These adhesions were taken down. Once this was done, the stomach was able to retract into the abdominal cavity. The distal esophagus was then dissected. Two 3-0 Vicryl was then used to close the pleura. The crura of the diaphragm was then approximated with 0 silk suture in a [id number] manner. Posterior stitches were placed. It was decided not to place mesh back into the patient's abdomen, and a gastropexy was then performed, suturing the stomach to the anterior abdominal wall. Two interrupted 2-0 silk sutures were placed. The serosal injuries were repaired with 2-0 Vicryl sutures in a simple interrupted manner. No other obvious injuries to the esophagus or stomach were identified. At this point, a #10 round JAQUEILNE was placed in the left upper quadrant. It was brought through a drain in the right upper quadrant. The fascia at the 12 mm port site was approximated with 0 Vicryl using a Jake-Raymond fascial closure device under direct vision. CO2 was released. All ports were removed. All skin incisions were closed with 4-0 Monocryl. The abdominal wall was cleaned and a sterile dressing placed. The patient was awakened and taken to the recovery room. All instruments, sponge, and needle counts were reported as correct at the end of the procedure. MD EREN Jonas/magdy , 06:25 PM , 06:39 PM
[2018-08-08] MEDS: Senna/Docusate Sodium 8.6/50 MG Tablet PO SCH (22:06)
[2018-08-08] MEDS: ceFAZolin 1 GM Premix Inj 1 GM/50 ML FROZ.PIGGY IV.SIG SCH (23:23)
[2018-08-08 23:31] LABS: Hemoglobin 12.6 gm/dL (11.6-15.3); Mean Corpuscular Hemoglobin 32.9 pg (27.0-34.0); Mean Platelet Volume 8.1 fL (7.0-11.0); Platelet Count 228 th/mm3 (150-450); Red Blood Count 3.83 mil/mm3 (4.00-5.30); Red Cell Distribution Width 13.6 % (11.6-17.2)
[2018-08-09] MEDS ORDERED: ceFAZolin Inj 1,000 MG in Sodium Chlor 0.9% Inj 100 ML IV.SIG SCH ×2
[2018-08-09] MEDS ORDERED: ceFAZolin 2 GM Premix Inj 2 GM/50 ML PIGGYBACK IV.SIG SCH
[2018-08-09 00:15] LABS: Alanine Aminotransferase 49 U/L (10-53); Albumin 2.8 g/dL (3.4-5.0); Alkaline Phosphatase 81 U/L (45-117); Anion Gap 8 meq/L (5-15); Aspartate Aminotransferase 60 U/L (15-37); Beta Hydroxybutyric Acid 0.12 mmol/L (0.00-0.39); Blood Urea Nitrogen 6 mg/dL (7-18); Calcium 7.9 mg/dL (8.5-10.1); Carbon Dioxide 27.6 meq/L (21.0-32.0); Chloride 102 meq/L (98-107); Glomerular Filtration Rate 68 mL/min (>89); Glucose,Random 183 mg/dL (74-106); Potassium 3.9 meq/L (3.5-5.1); Sodium 138 meq/L (136-145); Total Protein 5.4 g/dL (6.4-8.2)
[2018-08-09] MEDS: Pantoprazole Inj 40 MG Vial IV.PUSH SCH ×3 (06:11→18:09)
[2018-08-09] MEDS: Sertraline 50 MG Tablet PO SCH ×2 (07:23→09:32)
[2018-08-09] MEDS: KCL 20 mEq/D5W/NaCl 0.9% Inj 1,000 ML IV.CONT SCH (07:26)
[2018-08-09 07:35] LABS: Baso % (Auto) 0.5 % (0.0-2.0); Eos # (Auto) 0.1 th/mm3 (0.0-0.4); Hematocrit 35.1 % (35.0-46.0); Hemoglobin 12.2 gm/dL (11.6-15.3); Lymph # (Auto) 1.1 th/mm3 (1.0-4.8); Lymph % (Auto) 11.4 % (9.0-44.0); Mean Corpuscular HGB Conc 34.7 % (32.0-36.0); Mean Corpuscular Hemoglobin 33.1 pg (27.0-34.0); Mean Corpuscular Volume 95.5 fL (80.0-100.0); Mean Platelet Volume 8.6 fL (7.0-11.0); Mono # (Auto) 0.8 th/mm3 (0.0-0.9); Mono % (Auto) 8.8 % (0.0-8.0); Neut # (Auto) 7.4 th/mm3 (1.8-7.7); Neut % (Auto) 78.3 % (16.0-70.0); Platelet Count 232 th/mm3 (150-450); Red Blood Count 3.68 mil/mm3 (4.00-5.30); Red Cell Distribution Width 13.6 % (11.6-17.2); White Blood Count 9.4 th/mm3 (4.0-11.0)
--- NOTE | 2018-08-09 08:07 | P.PNCC ---
Subjective Subjective Remarks/Hospital Course: Patient is a 62-year-old female with diabetes on insulin pump, recurrent DKA, and history of paraesophageal hernia repair in 01/24 at [place]. At that time after discharge patient had problems with DKA with multiple admissions to [facility]. Also underwent EGD and balloon dilation on 07/[address] Vaca. Pt was readmitted on 08/02 and repeat balloon dilation on 08/03. Esophagogram on 08/05 showed severe stricture at the GE junction felt to be extrinsic compression from large paraesophageal hernia. Pt was transferred here to [place] for repair by Dr Beard. Patient underwent robotic assisted laparoscopic paraesophageal hernia repair by Dr. Matthews today, blood loss was less than 50 mL. Postop patient was extubated and moved to the PACU. Critical care medicine was consulted for assist with postop management and for hyperglycemia. Patient's blood sugar postop was 478. I evaluated the patient in the PACU. Patient is still slightly somnolent from anesthesia. She has NG tube in place, also has left chest tube as the thorax was entered during repair. Patient has right JAQUELINE drains in place with minimal sanguinous output. I have started patient on insulin infusion algorithm 1 and will admit patient to ICU as she is n.p.o. As the initial blood sugar was 478, I will get a stat CMP and beta hydroxybutyrate to rule out DKA. 08/09: Blood sugar well controlled this morning on insulin drip infusion. Range between 110 and 150. Chest x-ray shows nice expansion left lung following reduction of gastric hernia and she is breathing comfortably. Objective Vital Signs / I&O: Vital Signs 08/08/18 17:07 08/08/18 17:15 08/08/18 17:30 Temperature 96.9 F L Pulse Rate 91 H 88 86 Respiratory Rate 18 18 16 Blood Pressure 133/62 131/63 117/56 L Pulse Oximetry 96 96 96 08/08/18 17:45 08/08/18 18:00 08/08/18 18:15 Temperature 97.2 F L Pulse Rate 79 79 75 Respiratory Rate 17 18 16 Blood Pressure 117/56 L 121/58 L 119/68 Pulse Oximetry 96 94 L 95 08/08/18 18:30 08/08/18 18:45 08/08/18 19:00 Temperature Pulse Rate 79 84 85 Respiratory Rate 18 16 18 Blood Pressure 149/71 H 149/66 H 124/70 Pulse Oximetry 94 L 95 95 08/08/18 20:00 08/08/18 20:16 08/08/18 21:00 Temperature 98.3 F Pulse Rate 89 89 Respiratory Rate 17 Blood Pressure 132/78 Pulse Oximetry 97 96 08/08/18 21:52 08/09/18 00:00 08/09/18 04:00 Temperature 98.7 F 98.9 F Pulse Rate 93 H 80 80 Respiratory Rate 14 17 Blood Pressure 100/61 114/81 Pulse Oximetry 93 L 95 Intake & Output 08/08/18 08/09/18 08/09/18 18:59 06:59 18:59 Intake Total 3500 / 3500 1150 / 1150 1050 / 1050 Output Total 880 / 880 1895 / 1895 Balance 2620 / 2620 -745 / -745 1050 / 1050 Weight 84.5 kg Intake: IV 1050 / 1050 1050 / 1050 LR 1000 mL Inj 1,000 ML @ 100 1000 / 1000 mls/hr IV.CONT .Q10H [facility] Rx#: [id number] Ancef 1 GM Premix Inj 1 gm In 50 / 50 50 ml @ 100 mls/hr IV.SIG Q8H [facility] Rx#:[id number] Anesthesia Amount 3500 / 3500 100 / 100 Output: Estimated Blood Loss 250 / 250 Urine Amount (Catheter) 600 / 600 1650 / 1650 Indwelling Urethral Catheter 600 / 600 1650 / 1650 Gastric Drainage 25 / 25 Right Nare 25 / 25 Wound Drainage 30 / 30 150 / 150 # 1 Left Chest 30 / 30 80 / 80 # 2 Abdomen Andrea 70 / 70 Chest Tube Drainage 70 / 70 Left Upper 70 / 70 Other: Date of Last Bowel Movement 08/07/18 Result Diagrams: 08/09/18 06:50 08/09/18 06:50 Objective Remarks: Narrative: GEN: Lying flat in bed, breathing comfortably, no distress HEENTT: Pupils are reactive. Oral cavity is dry. NG tube in place NECK: Supple. Airway widely patent, no obstructive noises. LUNGS: Air entry equal bilaterally, no adventitious sounds. Comfortable respiratory pattern. Left chest tube in place with serosanguineous output HEART: S1 and S2 normal, no murmurs, normotensive. No JVD. ABDOMEN: Soft. Nontender. Trocar sites C/D/I. Right JAQUELINE drain with serosanguineous output EXTREMITIES: No pedal edema. Warm, well-perfused. NEUROLOGIC: Alert awake no focal deficits. Oriented x3, cooperative. Follows commands. Normal strength Assessment and Plan - Assessment and Plan Plan: ASSESSMENT: Status post laparoscopic paraesophageal hernia repair Severe hyperglycemia, rule out DKA Myrtle thyroiditis CLAIRE Asthma GERD History of esophageal dilatation PLAN: NEURO: -IV morphine as needed for pain control RESP: -DuoNeb every 2 hours as needed -Aggressive pulmonary toilet -Left chest tube management per Dr. Matthews CV: -IV fluids with LR at 100 cc/h -Monitor vitals closely per ICU protocol GI: -N.p.o., IV Protonix -Postop management per Dr. Matthews : -Monitor renal function closely. D/C Ureña catheter. ID: -Perioperative antibiotics per Dr. Matthews HEME: -Monitor CBC, coags ENDO: -Patient was hyperglycemic with blood sugar 478, now corrected and well hydrated. -Rule out DKA -> done -D/C IV insulin drip, start IV with 5% dextrose at 50 cc/h. Start Levemir 6 units subcu twice daily. Discontinue insulin drip 1 hour after Levemir given. Reinitiate every 4 hours sliding scale insulin regimen for correction. -Electrolyte replacement per protocol -Change thyroid supplements to IV at half dose, 50 mcg daily PROPH: -Bilateral lower extremity SCDs. IV Protonix -Chemical DVT prophylaxis only when cleared by surgery Overall impression: I will not restart her insulin pump as she will not have a reliable glucose source if she gets symptomatic. This will be supplemented with a sliding scale for correction. I will start very low dose Levemir twice daily along with a dextrose containing solution.
[2018-08-09 08:14] LABS: Anion Gap 9 meq/L (5-15); Blood Urea Nitrogen 6 mg/dL (7-18); Calcium 7.5 mg/dL (8.5-10.1); Carbon Dioxide 26.1 meq/L (21.0-32.0); Chloride 103 meq/L (98-107); Glomerular Filtration Rate Greater Than 89 mL/min (>89); Glucose,Random 115 mg/dL (74-106); Potassium 3.7 meq/L (3.5-5.1); Sodium 138 meq/L (136-145)
[2018-08-09] MEDS: Senna/Docusate Sodium 8.6/50 MG Tablet PO SCH ×2 (09:32→21:09)
--- NOTE | 2018-08-09 10:22 | FL ---
EXAM DATE: 08/09/2018 9:59 AM EDT AGE/SEX: 62 years / Female INDICATIONS: Evaluate paraesophageal hernia repair done yesterday. CLINICAL DATA: This is the patient's initial encounter. Patient reports that signs and symptoms have been present for 1 day and indicates a pain score of 7/10. MEDICAL/SURGICAL HISTORY: None. None. COMPARISON: No prior exams available for comparison. FLUORO TIME: 1.4 IMAGE COUNT: 7 FINDINGS: Preliminary film is unremarkable with a G-tube in place. Examination of the esophagus was first performed. Patient swallowed Gastroview without any evidence o f leak or extravasation. It does empty into the stomach Examination of the stomach demonstrates no evidence of intraluminal mass or extrinsic compression. T he gastric volume appears normal and there are no findings of ulceration. The duodenal bulb and duod enal sweep appear normal. The visualized small bowel is unremarkable. CONCLUSION: There is no evidence of leak or extravasation involving the distal esophagus or the stomach. Electronically signed by: Terrell Alarcon MD 08/09/2018 10:20 AM EDT
[2018-08-09] MEDS: ceFAZolin 1 GM Premix Inj 1 GM/50 ML FROZ.PIGGY IV.SIG SCH ×2 (10:23→15:58)
[2018-08-09] MEDS: Dextrose 5%/NaCl 0.9% Inj 1,000 ML IV.CONT SCH (11:57)
--- NOTE | 2018-08-09 12:17 | P.PNGS ---
Subjective Interval history: UGI shows no leak. + BMs. Pain controlled. Physical Exam Vital signs: Vital Signs 08/08/18 17:07 08/08/18 17:15 08/08/18 17:30 Temperature 96.9 F L Pulse Rate 91 H 88 86 Respiratory Rate 18 18 16 Blood Pressure 133/62 131/63 117/56 L Pulse Oximetry 96 96 96 08/08/18 17:45 08/08/18 18:00 08/08/18 18:15 Temperature 97.2 F L Pulse Rate 79 79 75 Respiratory Rate 17 18 16 Blood Pressure 117/56 L 121/58 L 119/68 Pulse Oximetry 96 94 L 95 08/08/18 18:30 08/08/18 18:45 08/08/18 19:00 Temperature Pulse Rate 79 84 85 Respiratory Rate 18 16 18 Blood Pressure 149/71 H 149/66 H 124/70 Pulse Oximetry 94 L 95 95 08/08/18 20:00 08/08/18 20:16 08/08/18 21:00 Temperature 98.3 F Pulse Rate 89 89 Respiratory Rate 17 Blood Pressure 132/78 Pulse Oximetry 97 96 08/08/18 21:52 08/09/18 00:00 08/09/18 04:00 Temperature 98.7 F 98.9 F Pulse Rate 93 H 80 80 Respiratory Rate 14 17 Blood Pressure 100/61 114/81 Pulse Oximetry 93 L 95 08/09/18 06:00 08/09/18 07:00 08/09/18 08:00 Temperature 98.0 F Pulse Rate 75 72 77 Respiratory Rate 15 15 16 Blood Pressure 118/73 123/65 121/65 Pulse Oximetry 97 95 98 Intake & Output 08/08/18 08/09/18 08/09/18 18:59 06:59 18:59 Intake Total 3500 / 3500 1150 / 1150 1999 Output Total 880 / 880 1895 / 1895 Balance 2620 / 2620 -745 / -745 1999 Weight 84.5 kg Intake: IV 1050 / 1050 1999 LR 1000 mL Inj 1,000 ML @ 100 1000 / 1000 900 / 900 mls/hr IV.CONT .Q10H [facility] Rx#: [id number] Ancef 1 GM Premix Inj 1 gm In 50 / 50 50 / 50 50 ml @ 100 mls/hr IV.SIG Q8H [facility] Rx#:[id number] Anesthesia Amount 3500 / 3500 100 / 100 Output: Estimated Blood Loss 250 / 250 Urine Amount (Catheter) 600 / 600 1650 / 1650 Indwelling Urethral Catheter 600 / 600 1650 / 1650 Gastric Drainage 25 / 25 Right Nare 25 / 25 Wound Drainage 30 / 30 150 / 150 # 1 Left Chest 30 / 30 80 / 80 # 2 Abdomen Andrea 70 / 70 Chest Tube Drainage 70 / 70 Left Upper 70 / 70 Other: Date of Last Bowel Movement 08/07/18 Narrative: NAd Chest tube ss output, no air leak Abd: soft, inc c/d/i, JAQUELINE ss output - Urinary Catheter Management Indwelling Urethral Catheter Cath placed during this visit: yes Reason for continuing: Hourly intake/output Insertion date: 08/08/18 Insertion time: 11:20 Results - Labs 08/09/18 06:50 08/09/18 06:50 Laboratory Results - last 24 hr 08/08/18 08/08/18 08/08/18 17:26 17:30 18:47 WBC RBC Hgb Hct MCV MCH MCHC RDW Plt Count MPV Neut % (Auto) Lymph % (Auto) [place] % (Auto) Eos % (Auto) Baso % (Auto) Neut # (Auto) Lymph # (Auto) [place] # (Auto) Eos # (Auto) Baso # (Auto) WBC Differential Differential Comment Sodium Potassium Chloride Carbon Dioxide Anion Gap BUN Creatinine Estimated GFR POC Glucose 478 H* 376 H 415 H Random Glucose Calcium Total Bilirubin AST ALT Alkaline Phosphatase Total Protein Albumin Beta-Hydroxybutyric Acd 08/08/18 08/08/18 08/08/18 20:03 21:11 21:58 WBC RBC Hgb Hct MCV MCH MCHC RDW Plt Count MPV Neut % (Auto) Lymph % (Auto) [place] % (Auto) Eos % (Auto) Baso % (Auto) Neut # (Auto) Lymph # (Auto) [place] # (Auto) Eos # (Auto) Baso # (Auto) WBC Differential Differential Comment Sodium Potassium Chloride Carbon Dioxide Anion Gap BUN Creatinine Estimated GFR POC Glucose 310 H 236 H 208 H Random Glucose Calcium Total Bilirubin AST ALT Alkaline Phosphatase Total Protein Albumin Beta-Hydroxybutyric Acd 08/08/18 08/08/18 08/08/18 22:56 23:04 23:04 WBC 9.0 RBC 3.83 L Hgb 12.6 Hct 36.0 MCV 94.0 MCH 32.9 MCHC 35.0 RDW 13.6 Plt Count 228 MPV 8.1 Neut % (Auto) Lymph % (Auto) [place] % (Auto) Eos % (Auto) Baso % (Auto) Neut # (Auto) Lymph # (Auto) Hamilton # (Auto) Eos # (Auto) Baso # (Auto) WBC Differential Differential Comment Sodium 138 Potassium 3.9 Chloride 102 Carbon Dioxide 27.6 Anion Gap 8 BUN 6 L Creatinine 0.85 Estimated GFR 68 L POC Glucose 175 H Random Glucose 183 H Calcium 7.9 L Total Bilirubin 0.6 AST 60 H ALT 49 Alkaline Phosphatase 81 Total Protein 5.4 L Albumin 2.8 L Beta-Hydroxybutyric Acd 0.12 08/09/18 08/09/18 08/09/18 00:08 00:41 01:52 WBC RBC Hgb Hct MCV MCH MCHC RDW Plt Count MPV Neut % (Auto) Lymph % (Auto) [place] % (Auto) Eos % (Auto) Baso % (Auto) Neut # (Auto) Lymph # (Auto) [place] # (Auto) Eos # (Auto) Baso # (Auto) WBC Differential Differential Comment Sodium Potassium Chloride Carbon Dioxide Anion Gap BUN Creatinine Estimated GFR POC Glucose 135 H 116 H 112 H Random Glucose Calcium Total Bilirubin AST ALT Alkaline Phosphatase Total Protein Albumin Beta-Hydroxybutyric Acd 08/09/18 08/09/18 08/09/18 02:56 03:59 04:55 WBC RBC Hgb Hct MCV MCH MCHC RDW Plt Count MPV Neut % (Auto) Lymph % (Auto) [place] % (Auto) Eos % (Auto) Baso % (Auto) Neut # (Auto) Lymph # (Auto) [place] # (Auto) Eos # (Auto) Baso # (Auto) WBC Differential Differential Comment Sodium Potassium Chloride Carbon Dioxide Anion Gap BUN Creatinine Estimated GFR POC Glucose 119 H 118 H 116 H Random Glucose Calcium Total Bilirubin AST ALT Alkaline Phosphatase Total Protein Albumin Beta-Hydroxybutyric Acd 08/09/18 08/09/18 08/09/18 05:48 06:50 06:50 WBC 9.4 RBC 3.68 L Hgb 12.2 Hct 35.1 MCV 95.5 MCH 33.1 MCHC 34.7 RDW 13.6 Plt Count 232 MPV 8.6 Neut % (Auto) 78.3 H Lymph % (Auto) 11.4 Hamilton % (Auto) 8.8 H Eos % (Auto) 1.0 Baso % (Auto) 0.5 Neut # (Auto) 7.4 Lymph # (Auto) 1.1 Hamilton # (Auto) 0.8 Eos # (Auto) 0.1 Baso # (Auto) 0.0 WBC Differential . Differential Comment Auto diff final Sodium 138 Potassium 3.7 Chloride 103 Carbon Dioxide 26.1 Anion Gap 9 BUN 6 L Creatinine 0.62 Estimated GFR Greater than 89 POC Glucose 116 H Random Glucose 115 H Calcium 7.5 L Total Bilirubin AST ALT Alkaline Phosphatase Total Protein Albumin Beta-Hydroxybutyric Acd 08/09/18 08/09/18 08/09/18 06:50 08:14 09:58 WBC RBC Hgb Hct MCV MCH MCHC RDW Plt Count MPV Neut % (Auto) Lymph % (Auto) [place] % (Auto) Eos % (Auto) Baso % (Auto) Neut # (Auto) Lymph # (Auto) [place] # (Auto) Eos # (Auto) Baso # (Auto) WBC Differential Differential Comment Sodium Potassium Chloride Carbon Dioxide Anion Gap BUN Creatinine Estimated GFR POC Glucose 113 H 92 128 H Random Glucose Calcium Total Bilirubin AST ALT Alkaline Phosphatase Total Protein Albumin Beta-Hydroxybutyric Acd 08/09/18 12:03 WBC RBC Hgb Hct MCV MCH MCHC RDW Plt Count MPV Neut % (Auto) Lymph % (Auto) [place] % (Auto) Eos % (Auto) Baso % (Auto) Neut # (Auto) Lymph # (Auto) [place] # (Auto) Eos # (Auto) Baso # (Auto) WBC Differential Differential Comment Sodium Potassium Chloride Carbon Dioxide Anion Gap BUN Creatinine Estimated GFR POC Glucose 170 H Random Glucose Calcium Total Bilirubin AST ALT Alkaline Phosphatase Total Protein Albumin Beta-Hydroxybutyric Acd - Imaging Imaging: ITS Impressions Chest X-Ray 08/08/18 17:47 CONCLUSION: 1. Interval placement of left-sided chest tube with no visualized pneumothorax on the current study. 2. Interval extubation and placement of nasogastric tube. 3. Abnormal opacity at the left lung base with obscuration of left hemidiaphragm and blunting of the left costophrenic angle which could indicate a small effusion. Gastrografin Study 08/09/18 07:00 CONCLUSION: There is no evidence of leak or extravasation involving the distal esophagus or the stomach. Assessment and Plan - Plan POD 1 s/p robot assisted redo hiatal hernia repair. UGI ok. Chest tube without leak. No acute problems. D/c ngt. Clears. Water seal chest tube and check CXR in 4 hrs. Transfer to floor.
[2018-08-09] MEDS: Insulin NovoLOG Aspart Correctional Sugar Inj SQ SCH ×3 (12:46→21:09)
[2018-08-09] MEDS: Insulin Detemir Inj 1,000 UNIT/10 ML Vial SQ SCH ×2 (12:46→21:08)
--- NOTE | 2018-08-09 14:31 | P.DIET ---
Nutritional Evaluation Type of nutrition evaluation: initial Nutrition screening: Weight Loss > 10 lbs Screening comments: Pt reports wt loss since hernia surgery 01/10/18 Subjective Oral Diet Tolerance Assessment Indicates: Swallowing problems Subjective Comments: Previous admission here 01/10/18 Wt 85.8kg(189-lb) Objective - Diagnosis DKA - Objective % IBW: 138 Body Weight Used for Calculations: IBW (54.5 kg) Energy Needs - Lower Range (kCal/kg): 25 Energy Needs - Upper Range (kCal/kg): 30 Lower Limit kCal/kg (kCals): 1,364 Upper Limit kCal/kg (kCals): 1,635 Lower Limit Protein Factor (Grams per Kg): 1.2 Upper Limit Protein Factor (Grams per Kg): 1.5 Lower Protein Needs (Protein): 65 Upper Protein Needs (Protein): 76 Dietitian Reviewed in Medical Record: Current diet, Curent medications, Intake & Output, Labs, Medical history Diet Order: Clear Liquid Objective Comments: POD#1 s/p robot redo hernia repair PMH includes: GERD, Hiatal Hernia, Hypothyroidism, DM, Depression, CLAIRE, Asthma, Paraesophageal hernia w/repair (01/24); 08/05 Esophagram showed severe stricture at he GE junction A1C 6.7(07/25/18); Random Glucose 183 Meds Include: Novolog, Levemir, Synthroid, Zofran, Protonix, Phenergan, Zoloft LBM 08/07 Assessment Assessment: Pt is at nutritional risk r/t recent unintentional wt loss. Diet advanced today to Clears. Monitor diet advancement and diet tolerance. Assess need for a nutritional supplement as appropriate. Labs reviewed. Dietitian following. Recommendations: 1. Monitor diet advancement and diet tolerance 2. Assess need for a nutritional supplement as appropriate 3. Dietitian following Dietitian to Monitor: Lab values, Glucose level, Intake & Output, Diet tolerance , Weight change, PO Intake, Diet advancement, Medical course
[2018-08-09] MEDS: Enoxaparin Inj 40 MG/0.4 ML Syringe SQ SCH (15:57)
--- NOTE | 2018-08-09 17:34 | XR ---
EXAM DATE: 08/09/2018 5:30 PM EDT AGE/SEX: 62 years / Female INDICATIONS: Evaluate for pneumothorax. CLINICAL DATA: This is the patient's subsequent encounter. Patient reports that signs and symptoms h ave been present for 3 days and indicates a pain score of 0/10. MEDICAL/SURGICAL HISTORY: None. None. COMPARISON: [facility] [place], CHEST 1V SINGLE AP, 08/08/2018. . FINDINGS: Left chest tube is in place. Left lung base opacity is present may be due to a combination of consolidation and or pleural effusio n. No definite pneumothorax is seen for technique. The rest of the examination has not changed. NG tube has been removed. CONCLUSION: Left lung base opacity is present may be due to a combination of consolidation and or pleural effusio n. Electronically signed by: Gretchen Tao MD 08/09/2018 5:32 PM EDT
--- NOTE | 2018-08-09 18:03 | ECG ---
Date Performed: 08/08/2018 Time Performed: 00:31:16 PTAGE: 62 years EKG: Sinus rhythm Extensive ST-T changes suggest myocardial infarct When compared to previous tracing, diffuse T wave inversions are New, consider ischmia. Abnormal ECG PREVIOUS TRACING : 11/01/2007 11.12.02 DOCTOR: Neil Liu Interpretating Date/Time 08/09/2018 18:02:43
[2018-08-10] MEDS: Insulin NovoLOG Aspart Correctional Sugar Inj SQ SCH ×6 (01:02→20:36)
[2018-08-10] MEDS: Pantoprazole Inj 40 MG Vial IV.PUSH SCH ×2 (08:02→20:36)
--- NOTE | 2018-08-10 08:51 | P.PNIM ---
Subjective Interval history: Patient reports that she has pain from the chest tube but does not want any medications for the pain. She is worried about any medications causing nausea/vomiting Pt is tolerating liquid diet She had a loose BM this morning. Afebrile Physical Exam Vital signs: Last Vital Signs Temp 98.0 F 08/10/18 08:00 Pulse 73 08/10/18 08:00 Resp 16 08/10/18 08:00 BP 128/73 08/10/18 08:00 Pulse Ox 98 08/10/18 08:00 Narrative: General: NAD, AAOx3 Heart: Regular Lung: Left CT in place. CTA bilaterally Abd: +BS, soft ND, mildly tender throughout, incisions are c/d/i Ext: No edema Results Labs CBC & Chem 7: 08/09/18 06:50 08/09/18 06:50 Imaging Chest X-Ray 08/08/18 00:00 CONCLUSION: ETT in good position. Apparent small left pneumothorax. Given the history of the chest with contrast would be of benefit. Chest X-Ray 08/08/18 17:47 CONCLUSION: 1. Interval placement of left-sided chest tube with no visualized pneumothorax on the current study. 2. Interval extubation and placement of nasogastric tube. 3. Abnormal opacity at the left lung base with obscuration of left hemidiaphragm and blunting of the left costophrenic angle which could indicate a small effusion. Gastrografin Study 08/09/18 07:00 CONCLUSION: There is no evidence of leak or extravasation involving the distal esophagus or the stomach. Chest X-Ray 08/09/18 16:00 CONCLUSION: Left lung base opacity is present may be due to a combination of consolidation and or pleural effusion. Assessment and Plan Assessment (1) Paraesophageal hernia: Code(s): K44.9 - Diaphragmatic hernia without obstruction or gangrene Status: Acute (2) Diabetes mellitus type 1: Code(s): E10.9 - Type 1 diabetes mellitus without complications Status: Chronic Plan Paraesophageal hernia - Pt is a 62 y/o female with type 1 diabetes on insulin pump, recurrent DKA, and history of paraesophageal hernia repair in 01/2018 at [place]. At that time after discharge patient had problems with DKA with multiple admissions to [facility]. She underwent EGD and balloon dilation on 07/18/[address] Vaca. Pt was readmitted on 08/02/18 and repeat balloon dilation on 08/03. Esophagogram on 08/05 showed severe stricture at the GE junction felt to be extrinsic compression from large paraesophageal hernia. Pt was transferred to [place] on 08/06/[address] Beard. - Patient underwent robotic assisted laparoscopic paraesophageal hernia repair by Dr. Matthews ton 08/08/18, blood loss was less than 50 mL. - Critical care medicine was consulted for postop management and for hyperglycemia as the patient's blood sugar postop was 478. Pt was started on an insulin drip post-op. - Post-op she had NG tube and also a left chest tube as the thorax was entered during repair. - NGT was removed on 08/09/18. - She was transferred out of ICU on 08/09/18 - Pt is tolerating clear liquid diet - General surgery to manage CT removal - Pain control PRN, pt is refusing any medications for pain, including Tylenol - Zofran PRN - Protonix 40mg IB Q12H - Lovenox and SCDs for DVT prophylaxsis Diabetes Mellitus, type 1 Hyperglycemia, post-op - Insulin pump off - NovoLog SSI - Levemir 6 units BID - Pt is also receiving D5W/NS @ 50mL/hr - Accu checks Hypothyroidism - Levothyroxine 100mcg po daily continued - Pt was started on Levothyroxine 50mcg IV daily as well in the ICU. We will stop this as pt is tolerating oral intake. Depression - Cont. home meds Attending Attestation Patient examined. Assessment and plan formulated with Betty Woo PA-C. I agree with the above. pt doing well. discussed with Dr Rock. probably remove CT tomorrow. diet advanced to liquid today. cover with SSI. ambulate. ?dc 1-2 days. Progress Note: Quality VTE Deep Vein Thrombosis/Pulmonary Embolism Present on Admission: No
[2018-08-10] MEDS: Insulin Detemir Inj 1,000 UNIT/10 ML Vial SQ SCH ×2 (09:00→20:35)
--- NOTE | 2018-08-10 09:34 | P.PNGS ---
Subjective Interval history: She is tolerating clears without nausea or dysphagia. Wants chest tube out. Has ambulated to bathroom. Physical Exam Vital signs: Vital Signs 08/09/18 10:00 08/09/18 11:00 08/09/18 12:00 Temperature 98.6 F Pulse Rate 87 77 83 Respiratory Rate 17 32 H 17 Blood Pressure 127/68 127/61 132/70 Pulse Oximetry 92 L 95 93 L 08/09/18 14:47 08/09/18 16:06 08/09/18 20:00 Temperature 98.2 F 99.1 F Pulse Rate 74 85 Respiratory Rate 16 18 Blood Pressure 125/61 119/60 Pulse Oximetry 95 94 L 93 L 08/10/18 00:00 08/10/18 01:27 08/10/18 04:00 Temperature 98.3 F 97.6 F Pulse Rate 78 81 Respiratory Rate 18 17 18 Blood Pressure 121/57 L 126/72 Pulse Oximetry 93 L 93 L 08/10/18 08:00 Temperature 98.0 F Pulse Rate 73 Respiratory Rate 16 Blood Pressure 128/73 Pulse Oximetry 98 Intake & Output 08/09/18 08/10/18 08/10/18 18:59 06:59 18:59 Intake Total 3070 / 3070 400 / 400 50 / 50 Output Total 345 / 345 Balance 2725 / 2725 400 / 400 50 / 50 Weight 83.6 kg Intake: IV 1999 / 1999 50 / 50 LR 1000 mL Inj 1,000 ML @ 100 900 / 900 mls/hr IV.CONT .Q10H SONAL Rx#: [id number] Ancef 1 GM Premix Inj 1 gm In 50 / 50 50 ml @ 100 mls/hr IV.SIG Q8H SONAL Rx#:[id number] Oral 1070 / 1070 400 / 400 Output: Urine Amount (Catheter) 275 / 275 Indwelling Urethral Catheter 275 / 275 Gastric Drainage 0 / 0 Right Nare 0 / 0 Wound Drainage 70 / 70 # 2 Abdomen Andrea 70 / 70 Other: # Voids 1 3 Date of Last Bowel Movement 08/09/18 08/09/18 # Bowel Movements 0 Narrative: NAD Pulm: ctab Abd: inc c/d/i - Urinary Catheter Management Indwelling Urethral Catheter Cath placed during this visit: yes, but has since been removed by the nurse Reason for continuing: Hourly intake/output Insertion date: 08/08/18 Insertion time: 11:20 Removal date: 08/09/18 Removal time: 11:10 Results - Labs 08/09/18 06:50 08/09/18 06:50 Laboratory Results - last 24 hr 08/09/18 08/09/18 08/09/18 09:58 12:03 15:51 POC Glucose 128 H 170 H 236 H 08/09/18 08/09/18 08/10/18 20:21 23:56 04:10 POC Glucose 152 H 113 H 68 08/10/18 08/10/18 04:35 05:05 POC Glucose 81 144 H - Imaging Imaging: ITS Impressions Gastrografin Study 08/09/18 07:00 CONCLUSION: There is no evidence of leak or extravasation involving the distal esophagus or the stomach. Chest X-Ray 08/09/18 16:00 CONCLUSION: Left lung base opacity is present may be due to a combination of consolidation and or pleural effusion. Assessment and Plan - Plan POD 2 s/p robot assisted redo hiatal hernia repair. UGI ok. Chest tube without leak. No acute problems. Fulls. Ambulate. Likely dc chest tube in am.
[2018-08-10] MEDS: Dextrose 5%/NaCl 0.9% Inj 1,000 ML IV.CONT SCH (10:21)
[2018-08-10] MEDS: Sertraline 50 MG Tablet PO SCH (10:22)
[2018-08-10] MEDS: Senna/Docusate Sodium 8.6/50 MG Tablet PO SCH ×2 (10:23→20:36)
[2018-08-10] MEDS: Enoxaparin Inj 40 MG/0.4 ML Syringe SQ SCH (16:10)
[2018-08-11] MEDS: Insulin NovoLOG Aspart Correctional Sugar Inj SQ SCH ×6 (03:58→21:01)
--- NOTE | 2018-08-11 05:05 | XR ---
EXAM DATE: 08/11/2018 5:02 AM EDT AGE/SEX: 62 years / Female INDICATIONS: Please evaluate for pneumothorax. CLINICAL DATA: This is the patient's subsequent encounter. Patient reports that signs and symptoms h ave been present for 4 - 6 days and indicates a pain score of 0/10. MEDICAL/SURGICAL HISTORY: None. . Left sided chest tube. [place] [facility] [place]. . FINDINGS: Left thoracostomy tube is again noted. There is no evidence of pneumothorax. Consolidation at the lef t base is grossly stable. Right lung is stable and grossly clear. Cardiac contours are unchanged CONCLUSION: No significant change Electronically signed by: Wilfredo Mccurdy MD 08/11/2018 5:03 AM EDT
[2018-08-11] MEDS: Pantoprazole Inj 40 MG Vial IV.PUSH SCH ×2 (07:48→19:17)
[2018-08-11] MEDS: Levothyroxine 100 MCG Tablet PO SCH (07:48)
[2018-08-11] MEDS: Dextrose 5%/NaCl 0.9% Inj 1,000 ML IV.CONT SCH (08:03)
--- NOTE | 2018-08-11 08:40 | P.PNIM ---
Subjective Interval history: Pt feeling some discomfort from the CT but overall feeling better She is tolerating full liquid diet She reports frequent small loose stools but states that this has been going on ever since her original surgery in 01/2018 Denies any melena or BPRBR Denies any dysphagia. Physical Exam Vital signs: Last Vital Signs Temp 98.3 F 08/11/18 00:00 Pulse 76 08/11/18 00:00 Resp 17 08/11/18 00:30 BP 143/73 H 08/11/18 00:00 Pulse Ox 93 L 08/11/18 00:00 Narrative: General: NAD, AAOx3 Heart: Regular Lung: Left CT in place. CTA bilaterally Abd: +BS, soft ND, mildly tender throughout, incisions are c/d/i Ext: No edema Results Labs CBC & Chem 7: 08/09/18 06:50 08/09/18 06:50 Imaging Chest X-Ray 08/08/18 00:00 CONCLUSION: ETT in good position. Apparent small left pneumothorax. Given the history of the chest with contrast would be of benefit. Chest X-Ray 08/08/18 17:47 CONCLUSION: 1. Interval placement of left-sided chest tube with no visualized pneumothorax on the current study. 2. Interval extubation and placement of nasogastric tube. 3. Abnormal opacity at the left lung base with obscuration of left hemidiaphragm and blunting of the left costophrenic angle which could indicate a small effusion. Gastrografin Study 08/09/18 07:00 CONCLUSION: There is no evidence of leak or extravasation involving the distal esophagus or the stomach. Chest X-Ray 08/09/18 16:00 CONCLUSION: Left lung base opacity is present may be due to a combination of consolidation and or pleural effusion. Chest X-Ray 08/11/18 06:00 CONCLUSION: No significant change Assessment and Plan Assessment (1) Paraesophageal hernia: Code(s): K44.9 - Diaphragmatic hernia without obstruction or gangrene Status: Acute (2) Diabetes mellitus type 1: Code(s): E10.9 - Type 1 diabetes mellitus without complications Status: Chronic Plan Paraesophageal hernia - Pt is a 62 y/o female with type 1 diabetes on insulin pump, recurrent DKA, and history of paraesophageal hernia repair in 01/2018 at [place]. At that time after discharge patient had problems with DKA with multiple admissions to [facility]. She underwent EGD and balloon dilation on 07/18/[address] Vaca. Pt was readmitted on 08/02/18 and repeat balloon dilation on 08/03. Esophagogram on 08/05 showed severe stricture at the GE junction felt to be extrinsic compression from large paraesophageal hernia. Pt was transferred to [place] on 08/06/[address] Beard. - Patient underwent robotic assisted laparoscopic paraesophageal hernia repair by Dr. Matthews ton 08/08/18, blood loss was less than 50 mL. - Critical care medicine was consulted for postop management and for hyperglycemia as the patient's blood sugar postop was 478. Pt was started on an insulin drip post-op. - Post-op she had NG tube and also a left chest tube as the thorax was entered during repair. - NGT was removed on 08/09/18. - She was transferred out of ICU on 08/09/18 - Pt is tolerated clear liquid diet and was advanced to full liquid diet on 08/10 and has been tolerating this well. - General surgery to manage CT removal - Pt refusing any medications for pain, including Tylenol - Zofran PRN - Protonix 40mg IV Q12H - Lovenox and SCDs for DVT prophylaxsis Diabetes Mellitus, type 1 Hyperglycemia, post-op - Insulin pump off - NovoLog SSI - Levemir 6 units BID - Pt is also receiving D5W/NS @ 50mL/hr, stop IVF today - Accu checks Hypothyroidism - Levothyroxine 100mcg po daily continued Depression - Cont. home meds Discharge Planning: Patient examined. Assessment and plan formulated with Betty Woo PA-C. I agree with the above. nancy and ct out tomorrow diet advanced. pt stable. Progress Note: Quality VTE Deep Vein Thrombosis/Pulmonary Embolism Present on Admission: No
[2018-08-11] MEDS: Insulin Detemir Inj 1,000 UNIT/10 ML Vial SQ SCH ×2 (09:00→21:01)
[2018-08-11] MEDS: Sertraline 50 MG Tablet PO SCH (10:05)
[2018-08-11] MEDS: Senna/Docusate Sodium 8.6/50 MG Tablet PO SCH ×2 (10:09→21:00)
--- NOTE | 2018-08-11 11:21 | P.PNGS ---
Subjective Interval history: She is tolerating fulls without dysphagia or nausea. Has been ambulating. Would like to have chest tube out. Physical Exam Vital signs: Vital Signs 08/10/18 12:00 08/10/18 16:00 08/10/18 20:00 Temperature 97.7 F 98.2 F 98.2 F Pulse Rate 78 73 77 Respiratory Rate 18 16 18 Blood Pressure 134/66 136/65 138/68 Pulse Oximetry 93 L 92 L 94 L 08/11/18 00:00 08/11/18 00:30 08/11/18 08:00 Temperature 98.3 F 97.9 F Pulse Rate 76 76 Respiratory Rate 18 17 17 Blood Pressure 143/73 H 140/66 Pulse Oximetry 93 L 95 08/11/18 08:56 Temperature Pulse Rate Respiratory Rate Blood Pressure Pulse Oximetry 95 Intake & Output 08/10/18 08/11/18 08/11/18 18:59 06:59 18:59 Intake Total 1050 / 1050 1450 / 1450 Output Total 200 / 200 170 / 170 Balance 850 / 850 1280 / 1280 Weight 83.9 kg Intake: IV 1050 / 1050 1000 / 1000 D5W/Normal Saline Inj 1,000 ML 1000 / 1000 1000 / 1000 @ 50 mls/hr IV.CONT .Q20H SONAL Rx#:[id number] Oral 450 / 450 Output: Wound Drainage 200 / 200 70 / 70 # 1 Left Chest 100 / 100 # 2 Abdomen Andrea 100 / 100 70 / 70 Chest Tube Drainage 100 / 100 Left Upper 100 / 100 Other: # Voids 4 2 Date of Last Bowel Movement 08/10/18 08/10/18 # Bowel Movements 6 Narrative: NAD Abd: soft, inc c/d/i. JAQUELINE ss output 170cc/24h. Chest tube in place serous output 100cc/24h - Urinary Catheter Management Indwelling Urethral Catheter Cath placed during this visit: yes, but has since been removed by the nurse Reason for continuing: Hourly intake/output Insertion date: 08/08/18 Insertion time: 11:20 Removal date: 08/09/18 Removal time: 11:10 Results - Labs 08/09/18 06:50 08/09/18 06:50 Laboratory Results - last 24 hr 08/10/18 08/10/18 08/10/18 12:54 15:43 17:43 POC Glucose 216 H 190 H 217 H 08/10/18 08/10/18 08/11/18 18:41 20:29 00:39 POC Glucose 215 H 168 H 63 L 08/11/18 08/11/18 08/11/18 01:46 04:21 08:25 POC Glucose 95 90 125 H - Imaging Imaging: ITS Impressions Gastrografin Study 08/09/18 07:00 CONCLUSION: There is no evidence of leak or extravasation involving the distal esophagus or the stomach. Chest X-Ray 08/11/18 06:00 CONCLUSION: No significant change Assessment and Plan - Plan POD 3 s/p robot assisted redo hiatal hernia repair. Tolerating fulls. Fair amt of output from both chest tube and JAQUELINE. Soft diet. Cont JAQUELINE and chest tube. Dr. Urbano will see tomorrow.
[2018-08-11] MEDS: Enoxaparin Inj 40 MG/0.4 ML Syringe SQ SCH (17:21)
[2018-08-12] MEDS: Insulin NovoLOG Aspart Correctional Sugar Inj SQ SCH ×6 (00:25→19:44)
[2018-08-12] MEDS: Levothyroxine 100 MCG Tablet PO SCH (06:53)
[2018-08-12] MEDS: Pantoprazole Inj 40 MG Vial IV.PUSH SCH ×2 (06:53→19:44)
[2018-08-12] MEDS: Sertraline 50 MG Tablet PO SCH (08:13)
[2018-08-12] MEDS: Senna/Docusate Sodium 8.6/50 MG Tablet PO SCH ×2 (08:14→20:20)
[2018-08-12] MEDS: Insulin Detemir Inj 1,000 UNIT/10 ML Vial SQ SCH ×2 (08:14→20:19)
--- NOTE | 2018-08-12 12:42 | P.PNGS ---
Subjective Patient reports: no new complaints (Continues to feel better; tolerating a soft diet and is moving around well; having occasional loose BM's), feels better, tolerating a regular diet, flatus, bowel movement (Continues to feel better; tolerating a soft diet and is having loose BM's but not diarrhea. ) Physical Exam Vital signs: Vital Signs 08/11/18 16:00 08/11/18 20:00 08/11/18 20:58 Temperature 98.2 F 98.0 F Pulse Rate 75 71 Respiratory Rate 17 18 Blood Pressure 137/76 132/69 Pulse Oximetry 93 L 94 L 94 L 08/12/18 00:00 08/12/18 04:00 08/12/18 07:52 Temperature 98.1 F 98.3 F 97.6 F Pulse Rate 72 63 67 Respiratory Rate 17 17 17 Blood Pressure 130/68 126/62 130/70 Pulse Oximetry 94 L 93 L 93 L Intake & Output 08/11/18 08/12/18 08/12/18 19:59 06:59 18:59 Intake Total Output Total Balance Weight Intake: IV Output: Wound Drainage # 1 Left Chest # 2 Abdomen Andrea Chest Tube Drainage Left Upper Other: # Voids Date of Last Bowel Movement 08/11/18 # Bowel Movements - Constitutional no acute distress - Routine Abdominal Exam Present: soft, normoactive bowel sounds - Urinary Catheter Management Indwelling Urethral Catheter Cath placed during this visit: yes, but has since been removed by the nurse Reason for continuing: Hourly intake/output Insertion date: 08/08/18 Insertion time: 11:20 Removal date: 08/09/18 Removal time: 11:10 Results - Labs 08/09/18 06:50 08/09/18 06:50 Laboratory Results - last 24 hr 08/11/18 08/11/18 08/12/18 17:19 21:00 00:23 POC Glucose 252 H 149 H 135 H 08/12/18 08/12/18 08/12/18 03:51 07:39 12:15 POC Glucose 178 H 139 H 301 H - Imaging Imaging: ITS Impressions Gastrografin Study 08/09/18 07:00 CONCLUSION: There is no evidence of leak or extravasation involving the distal esophagus or the stomach. Chest X-Ray 08/11/18 06:00 CONCLUSION: No significant change Assessment and Plan - Assessment (1) Paraesophageal hernia Code(s): K44.9 - Diaphragmatic hernia without obstruction or gangrene Status: Acute Plan: Continuing to improve; hopefully the CT and JAQUELINE's out tomorrow.
--- NOTE | 2018-08-12 13:21 | P.PNIM ---
Subjective Interval history: eager for CT out eating well. Physical Exam Vital signs: Last Vital Signs Temp 99.2 F 08/12/18 12:39 Pulse 86 08/12/18 12:39 Resp 17 08/12/18 12:39 BP 147/78 H 08/12/18 12:39 Pulse Ox 93 L 08/12/18 12:39 Narrative: heart reg lung cta. left chest tube abd s/nt/right nancy drain ext no edema Results Labs CBC & Chem 7: 08/09/18 06:50 08/09/18 06:50 Assessment and Plan Assessment (1) Paraesophageal hernia: Code(s): K44.9 - Diaphragmatic hernia without obstruction or gangrene Status: Acute Plan Paraesophageal hernia - Pt is a 62 y/o female with type 1 diabetes on insulin pump, recurrent DKA, and history of paraesophageal hernia repair in 01/2018 at [place]. At that time after discharge patient had problems with DKA with multiple admissions to [facility]. She underwent EGD and balloon dilation on 07/18/[address] Vaca. Pt was readmitted on 08/02/18 and repeat balloon dilation on 08/03. Esophagogram on 08/05 showed severe stricture at the GE junction felt to be extrinsic compression from large paraesophageal hernia. Pt was transferred to [place] on 08/06/[address] Beard. - Patient underwent robotic assisted laparoscopic paraesophageal hernia repair by Dr. Matthews ton 08/08/18, blood loss was less than 50 mL. - Critical care medicine was consulted for postop management and for hyperglycemia as the patient's blood sugar postop was 478. Pt was started on an insulin drip post-op. - Post-op she had NG tube and also a left chest tube as the thorax was entered during repair. - NGT was removed on 08/09/18. - She was transferred out of ICU on 08/09/18 - tolerating diet dc when ok with gen surg. await removal of CT and NANCY Diabetes Mellitus, type 1 Hyperglycemia, post-op - Insulin pump off - NovoLog SSI - Levemir 6 units BID - Accu checks Hypothyroidism - Levothyroxine 100mcg po daily continued Depression - Cont. home meds Progress Note: Quality VTE Deep Vein Thrombosis/Pulmonary Embolism Present on Admission: No
[2018-08-12] MEDS: Enoxaparin Inj 40 MG/0.4 ML Syringe SQ SCH (16:13)
[2018-08-13] MEDS: Insulin NovoLOG Aspart Correctional Sugar Inj SQ SCH ×5 (00:05→17:42)
[2018-08-13] MEDS: Levothyroxine 100 MCG Tablet PO SCH (06:46)
[2018-08-13] MEDS: Pantoprazole Inj 40 MG Vial IV.PUSH SCH ×2 (06:46→20:47)
[2018-08-13] MEDS: Sertraline 50 MG Tablet PO SCH (08:42)
[2018-08-13] MEDS: Insulin Detemir Inj 1,000 UNIT/10 ML Vial SQ SCH ×2 (08:42→21:25)
[2018-08-13] MEDS: Senna/Docusate Sodium 8.6/50 MG Tablet PO SCH (08:43)
--- NOTE | 2018-08-13 11:41 | P.PNIM ---
Subjective Interval history: Pt has NO new clinical complaints. Pt is tolerating PO intake without c/o n/v/d. Physical Exam Vital signs: Last Vital Signs Temp 98.2 F 08/13/18 08:00 Pulse 80 08/13/18 08:00 Resp 18 08/13/18 04:00 BP 128/58 L 08/13/18 08:00 Pulse Ox 95 08/13/18 08:00 Intake & Output 08/11/18 08/12/18 08/13/18 08/14/18 07:59 06:59 06:59 06:59 Intake Total Output Total 115 / 115 Balance -115 / -115 Weight 81.1 kg Narrative: GENERAL: This is a well-nourished, well-developed patient, in no apparent distress. CARDIOVASCULAR: Regular rate and rhythm without murmurs, gallops, or rubs. RESPIRATORY: Clear to auscultation. Breath sounds equal bilaterally. No wheezes , rales, or rhonchi. MUSCULOSKELETAL: Extremities without clubbing, cyanosis, or edema. NEURO: Alert & Oriented x4 to person, place, time, situation. Moves all ext x4 Abd: soft, inc c/d/i. JAQUELINE ss output 170cc/24h. (08/12) Chest tube in place serous output 100cc/24h (08/12) JAQUELINE output 55ml/12 hours (08/13) Chest tube output 60ml/12h (08/12) Urinary Catheter Management Indwelling Urethral Catheter: Cath placed during this visit: yes, but has since been removed by the nurse Urethral indwelling: No Insertion date: 08/08/18 Insertion time: 11:20 Removal date: 08/09/18 Removal time: 11:10 Results Labs CBC & Chem 7: 08/09/18 06:50 08/09/18 06:50 Assessment and Plan (1) Paraesophageal hernia: Code(s): K44.9 - Diaphragmatic hernia without obstruction or gangrene Status: Acute Plan Plan Paraesophageal hernia - Pt is a 62 y/o female with type 1 diabetes on insulin pump, recurrent DKA, and history of paraesophageal hernia repair in 01/2018 at [place]. At that time after discharge patient had problems with DKA with multiple admissions to [facility]. She underwent EGD and balloon dilation on 07/18/[address] Nasr. Pt was readmitted on 08/02/18 and repeat balloon dilation on 08/03. Esophagogram on 08/05 showed severe stricture at the GE junction felt to be extrinsic compression from large paraesophageal hernia. Pt was transferred to [place] on 08/06/[address] Beard. - Patient underwent robotic assisted laparoscopic paraesophageal hernia repair by Dr. Matthews ton 08/08/18, blood loss was less than 50 mL. - Critical care medicine was consulted for postop management and for hyperglycemia as the patient's blood sugar postop was 478. Pt was started on an insulin drip post-op. - Post-op she had NG tube and also a left chest tube as the thorax was entered during repair. - NGT was removed on 08/09/18. - She was transferred out of ICU on 08/09/18 - - tolerating diet - dc when ok with gen surg. - await removal of CT and JAQUELINE - anticipate d/c in next 1-2 days Diabetes Mellitus, type 1 Hyperglycemia, post-op - Insulin pump off - NovoLog SSI - Levemir 6 units BID - Accu checks Hypothyroidism - Levothyroxine 100mcg po daily continued Depression - Cont. home meds Progress Note: Quality VTE Deep Vein Thrombosis/Pulmonary Embolism Present on Admission: No
--- NOTE | 2018-08-13 11:47 | P.DCO ---
Diagnosis (1) Paraesophageal hernia: Status: Acute Physical Therapy Order: Evaluate and treat, Improve ambulation and Strength and gait training Home Health Nursing Order: Medical education, Signs/symptoms of disease process, Medication education-adverse effect, Wound care and dressing changes and Nursing assessment with vital signs Case Management Consult No I have seen patient Jayne Mckeon on 08/13/18. My clinical findings support the need for the requested home health care services because: Limited mobility due to disease progression, Medication compliance is questionable, Limited ability to care for self and Need for psychosocial assistance I certify that my clinical findings support that this patient is homebound because: Post-op weakness, Unsafe to leave home unassisted, Need for psychosocial assistance and Unable to use public transportation
[2018-08-13] MEDS: Enoxaparin Inj 40 MG/0.4 ML Syringe SQ SCH (17:51)
--- NOTE | 2018-08-13 18:20 | XR ---
EXAM DATE: 08/13/2018 6:14 PM EST AGE/SEX: 62 years / Female INDICATIONS: Short of breath. CLINICAL DATA: This is the patient's subsequent encounter. Patient reports that signs and symptoms h ave been present for 1 week and indicates a pain score of 5/10. MEDICAL/SURGICAL HISTORY: Non-responsive. Non-responsive. COMPARISON: [facility], CHEST 1V SINGLE AP, 08/11/2018. . FINDINGS: Left chest tube has been removed. Very mild left base atelectasis. No pneumothorax. Heart size stable, within normal limits. CONCLUSION: Left chest tube out. No pneumothorax. Trace left base atelectasis. Electronically signed by: Wilfredo Valladares MD 08/13/2018 6:19 PM EST
--- NOTE | 2018-08-14 06:09 | XR ---
EXAM DATE: 08/14/2018 6:02 AM EST AGE/SEX: 62 years / Female INDICATIONS: Evaluate left chest post removal of chest tube, follow up CLINICAL DATA: This is the patient's subsequent encounter. Patient reports that signs and symptoms h ave been present for 2 weeks and indicates a pain score of 1/10. MEDICAL/SURGICAL HISTORY: . pneumothorax Chest tube, left. [place] [facility] [place] . FINDINGS: There is persistent consolidation and effusion at the left base. No pneumothorax. Right lung is stabl e and grossly clear. Cardiac contours are unchanged. CONCLUSION: Left base consolidation and small effusion Electronically signed by: Wilfredo Mccurdy MD 08/14/2018 6:08 AM EST
[2018-08-14] MEDS: Insulin NovoLOG Aspart Correctional Sugar Inj SQ SCH ×4 (07:55→12:15)
[2018-08-14] MEDS: Senna/Docusate Sodium 8.6/50 MG Tablet PO SCH ×2 (07:56→08:32)
[2018-08-14] MEDS: Levothyroxine 100 MCG Tablet PO SCH (07:57)
[2018-08-14] MEDS: Pantoprazole Inj 40 MG Vial IV.PUSH SCH (08:08)
[2018-08-14] MEDS: Insulin Detemir Inj 1,000 UNIT/10 ML Vial SQ SCH (08:32)
[2018-08-14] MEDS: Sertraline 50 MG Tablet PO SCH (08:58)
--- NOTE | 2018-08-14 10:43 | P.PNGS ---
Subjective Patient reports: no new complaints (tolerating soft diet, fluids. No dyspnea, palpitation or chest pain. Abdominal pain well controlled. Denies N/V) Physical Exam Vital signs: Vital Signs 08/13/18 12:00 08/13/18 16:00 08/13/18 20:00 Temperature 98.2 F 98.3 F 97.6 F Pulse Rate 78 76 87 Respiratory Rate 16 16 17 Blood Pressure 124/65 127/69 128/69 Pulse Oximetry 94 L 92 L 97 08/14/18 00:00 08/14/18 01:00 08/14/18 08:00 Temperature 97.6 F 97.7 F Pulse Rate 84 72 Respiratory Rate 18 17 18 Blood Pressure 143/65 H 129/61 Pulse Oximetry 98 94 L Intake & Output 08/13/18 08/14/18 08/14/18 18:59 06:59 18:59 Intake Total 480 / 480 Balance 480 / 480 Weight 79.6 kg Intake: Oral 480 / 480 Other: # Voids 3 4 Date of Last Bowel Movement 08/13/18 08/13/18 # Bowel Movements 1 - Constitutional no acute distress - Routine Neck Exam Present: supple - Routine Respiratory Exam Present: crackles Comments: bibasilar fine crackles. - Routine Cardiovascular Exam Present: RRR, S1, S2 - Routine Abdominal Exam Present: soft Comments: normal post operative tenderness laproscopic sites WNL. - Routine Skin Exam Comments: Chest tube site CDI, RUQ JAQUELINE CDI, both with serous drainage. - Urinary Catheter Management Indwelling Urethral Catheter Cath placed during this visit: yes, but has since been removed by the nurse Urethral indwelling: No Reason for continuing: Hourly intake/output Insertion date: 08/08/18 Insertion time: 11:20 Removal date: 08/09/18 Removal time: 11:10 Results - Labs 08/09/18 06:50 08/09/18 06:50 Laboratory Results - last 24 hr 08/13/18 08/13/18 08/13/18 12:08 17:16 20:54 POC Glucose 321 H 79 161 H 08/13/18 08/14/18 08/14/18 23:09 01:35 04:59 POC Glucose 160 H 139 H 129 H 08/14/18 08:12 POC Glucose 109 - Imaging Imaging: ITS Impressions Gastrografin Study 08/09/18 07:00 CONCLUSION: There is no evidence of leak or extravasation involving the distal esophagus or the stomach. Chest X-Ray 08/14/18 07:00 CONCLUSION: Left base consolidation and small effusion Assessment and Plan - Assessment (1) Paraesophageal hernia Code(s): K44.9 - Diaphragmatic hernia without obstruction or gangrene Status: Acute Plan: Doing well D/C CT and JAQUELINE today CXR post CT removal and in AM. Continue soft diet Encourage ambulation Anticipate D/C home tomorrow if doing well. - Plan Code Status: full Discussed Condition With: patient and daughter
--- NOTE | 2018-08-14 10:46 | P.PNGS ---
Subjective Patient reports: no new complaints (Denies dyspnea, palpitations or chest pain. Ambulating without difficulty. No N/V.) Physical Exam Vital signs: Vital Signs 08/13/18 12:00 08/13/18 16:00 08/13/18 20:00 Temperature 98.2 F 98.3 F 97.6 F Pulse Rate 78 76 87 Respiratory Rate 16 16 17 Blood Pressure 124/65 127/69 128/69 Pulse Oximetry 94 L 92 L 97 08/14/18 00:00 08/14/18 01:00 08/14/18 08:00 Temperature 97.6 F 97.7 F Pulse Rate 84 72 Respiratory Rate 18 17 18 Blood Pressure 143/65 H 129/61 Pulse Oximetry 98 94 L Intake & Output 08/13/18 08/14/18 08/14/18 18:59 06:59 18:59 Intake Total 480 / 480 Balance 480 / 480 Weight 79.6 kg Intake: Oral 480 / 480 Other: # Voids 3 4 Date of Last Bowel Movement 08/13/18 08/13/18 # Bowel Movements 1 - Constitutional no acute distress - Routine Neck Exam Present: supple - Routine Respiratory Exam Comments: Bibasilar fine crackles. - Routine Cardiovascular Exam Present: RRR, S1, S2 - Routine Abdominal Exam Comments: normal post operative tenderness, laproscopic sites intact. Soft mildly distended. - Urinary Catheter Management Indwelling Urethral Catheter Cath placed during this visit: yes, but has since been removed by the nurse Urethral indwelling: No Reason for continuing: Hourly intake/output Insertion date: 08/08/18 Insertion time: 11:20 Removal date: 08/09/18 Removal time: 11:10 Results - Labs 08/09/18 06:50 08/09/18 06:50 Laboratory Results - last 24 hr 08/13/18 08/13/18 08/13/18 12:08 17:16 20:54 POC Glucose 321 H 79 161 H 08/13/18 08/14/18 08/14/18 23:09 01:35 04:59 POC Glucose 160 H 139 H 129 H 08/14/18 08:12 POC Glucose 109 - Imaging Imaging: ITS Impressions Gastrografin Study 08/09/18 07:00 CONCLUSION: There is no evidence of leak or extravasation involving the distal esophagus or the stomach. Chest X-Ray 08/14/18 07:00 CONCLUSION: Left base consolidation and small effusion Assessment and Plan - Assessment (1) Paraesophageal hernia Code(s): K44.9 - Diaphragmatic hernia without obstruction or gangrene Status: Acute Plan: Doing well CXR this AM with small effusion left BG improved, per medical will be d/c'd home with home health services for medication management Continue soft diet Encourage ambulation D/C home today. - Plan Code Status: full Discussed Condition With: patient
--- NOTE | 2018-08-14 11:53 | P.PNIM ---
Subjective Interval history: Pt had CT removed on 08/13/18 She is still requiring some supplemental O2 Physical Exam Vital signs: Last Vital Signs Temp 97.7 F 08/14/18 08:00 Pulse 72 08/14/18 08:00 Resp 18 08/14/18 08:00 BP 129/61 08/14/18 08:00 Pulse Ox 94 L 08/14/18 08:00 Narrative: General: NAD, AAOx3 Cardiac: Regular Chest: CTA Abd: +BS, soft, ND/NT, incisions are c/d/i Ext: no edema Results Labs CBC & Chem 7: 08/09/18 06:50 08/09/18 06:50 Imaging Chest X-Ray 08/08/18 00:00 CONCLUSION: ETT in good position. Apparent small left pneumothorax. Given the history of the chest with contrast would be of benefit. Chest X-Ray 08/08/18 17:47 CONCLUSION: 1. Interval placement of left-sided chest tube with no visualized pneumothorax on the current study. 2. Interval extubation and placement of nasogastric tube. 3. Abnormal opacity at the left lung base with obscuration of left hemidiaphragm and blunting of the left costophrenic angle which could indicate a small effusion. Gastrografin Study 08/09/18 07:00 CONCLUSION: There is no evidence of leak or extravasation involving the distal esophagus or the stomach. Chest X-Ray 08/09/18 16:00 CONCLUSION: Left lung base opacity is present may be due to a combination of consolidation and or pleural effusion. Chest X-Ray 08/11/18 06:00 CONCLUSION: No significant change Chest X-Ray 08/13/18 18:15 CONCLUSION: Left chest tube out. No pneumothorax. Trace left base atelectasis. Chest X-Ray 08/14/18 07:00 CONCLUSION: Left base consolidation and small effusion Assessment and Plan Assessment (1) Paraesophageal hernia: Code(s): K44.9 - Diaphragmatic hernia without obstruction or gangrene Status: Acute Plan Paraesophageal hernia - Pt is a 62 y/o female with type 1 diabetes on insulin pump, recurrent DKA, and history of paraesophageal hernia repair in 01/2018 at [facility]. At that time after discharge patient had problems with DKA with multiple admissions to [facility]. She underwent EGD and balloon dilation on 07/18/[address] Vaca. Pt was readmitted on 08/02/18 and repeat balloon dilation on 08/03. Esophagogram on 08/05 showed severe stricture at the GE junction felt to be extrinsic compression from large paraesophageal hernia. Pt was transferred to [facility] on 08/06/[address] Beard. - Patient underwent robotic assisted laparoscopic paraesophageal hernia repair by Dr. Matthews ton 08/08/18, blood loss was less than 50 mL. - Critical care medicine was consulted for postop management and for hyperglycemia as the patient's blood sugar postop was 478. Pt was started on an insulin drip post-op. - Post-op she had NG tube and also a left chest tube as the thorax was entered during repair. - NGT was removed on 08/09/18. - She was transferred out of ICU on 08/09/18 - tolerating diet dc when ok with gen surg. await removal of CT and JAQUELINE Diabetes Mellitus, type 1 Hyperglycemia, post-op - Insulin pump off - NovoLog SSI - Levemir 6 units BID - Accu checks Hypothyroidism - Levothyroxine 100mcg po daily continued Depression - Cont. home meds Progress Note: Quality VTE Deep Vein Thrombosis/Pulmonary Embolism Present on Admission: No
--- NOTE | 2018-08-14 12:45 | P.DS ---
DS: Providers Date of admission: 08/08/18 17:59 Primary care physician: Dr. Jessica Pastrana Consults: 08/06/18 17:59 Consult to General Surgery Routine Consulting Provider: Nicolas Beard Patient known to:: Nicolas Beard Reason for Consultation: consult Dr Beard. Paraesophageal hernia. known to you Notified:: Service Spoke with:: eddie Date Notified:: 08/06/18 Time Notified:: 18:11 Ordering Provider: VICK 08/08/18 18:09 Consult to Construction Checker Stat Consulting Provider: Amberly Villalobos For STAT consult, spoke directly to:: Dr Villalobos Reason for Consultation: ISC management post repair reucrrent paraesophageal hernia Notified:: Service Spoke with:: kayla Date Notified:: 08/08/18 Time Notified:: 18:30 Ordering Provider: OFELIA 08/09/18 08:26 Consult to Hospitalist Routine Consulting Provider: Brandon Nuno Reason for Consultation: Medical management - [facility] Notified:: Service Spoke with:: Faye Date Notified:: 08/09/18 Time Notified:: 08:35 Ordering Provider: DERIC DS: Diagnosis Discharge Diagnosis (1) Paraesophageal hernia: Status: Acute DS: Summary Paraesophageal hernia - Pt is a 62 y/o female with type 1 diabetes on insulin pump, recurrent DKA, and history of paraesophageal hernia repair in 01/2018 at [facility]. At that time after discharge patient had problems with DKA with multiple admissions to [facility]. She underwent EGD and balloon dilation on 07/18/[address] Vaca. Pt was readmitted on 08/02/18 and repeat balloon dilation on 08/03. Esophagogram on 08/05 showed severe stricture at the GE junction felt to be extrinsic compression from large paraesophageal hernia. Pt was transferred to [facility] on 08/06/[address] Beard. Patient underwent robotic assisted laparoscopic paraesophageal hernia repair by Dr. Matthews ton 08/08/18 , blood loss was less than 50 mL. Critical care medicine was consulted for postop management and for hyperglycemia as the patient's blood sugar postop was 478. Pt was started on an insulin drip post-op. Post-op she had NG tube and also a left chest tube as the thorax was entered during repair. NGT was removed on 08/09/18. She was transferred out of ICU on 08/09/18. Her diet has been slowly advanced and she has been tolerating a soft diet prior to discharge. Her CT was removed on 08/13/18. Repeat CXR with no evidence of pneumothorax. Pt has been cleared for discharge on 08/14/[address] Lay. She is to followup with him on previously scheduled appt on 08/20/18. Diabetes Mellitus, type 1 Hyperglycemia, post-op - Pt is to resume her insulin pump upon returning home. She did have some post- op hyperglycemia that required Insulin gtt but was able to be converted to NovoLog SSI and Levemir 6 units BID. Her BS were fairly stable on this regimen. Hypothyroidism - Cont. Levothyroxine 100mcg po daily upon discharge. Depression - Cont. home meds Time spent discussing smoking cessation with patient: more than 10 minutes Status at Discharge Functional status at discharge: independent ambulation Overall status at discharge: patient is progressing back to baseline Time Spent with Patient Total time spent providing and/or coordinating discharge services: Greater than 30 minutes Quality: VTE Deep Vein Thrombosis/Pulmonary Embolism Present on Admission: No Exam Narrative Exam Narrative: Narrative: General: NAD, AAOx3 Cardiac: Regular Chest: CTA Abd: +BS, soft, ND/NT, incisions are c/d/i Ext: no edema DS: Data Labs on day of discharge: Labs from last 24 hours 08/14/18 08/14/18 08/14/18 12:03 08:12 04:59 POC Glucose 261 H 109 129 H 08/14/18 08/13/18 08/13/18 01:35 23:09 20:54 POC Glucose 139 H 160 H 161 H 08/13/18 17:16 POC Glucose 79 Impressions Chest X-Ray 08/08/18 00:00 CONCLUSION: ETT in good position. Apparent small left pneumothorax. Given the history of the chest with contrast would be of benefit. Chest X-Ray 08/08/18 17:47 CONCLUSION: 1. Interval placement of left-sided chest tube with no visualized pneumothorax on the current study. 2. Interval extubation and placement of nasogastric tube. 3. Abnormal opacity at the left lung base with obscuration of left hemidiaphragm and blunting of the left costophrenic angle which could indicate a small effusion. Gastrografin Study 08/09/18 07:00 CONCLUSION: There is no evidence of leak or extravasation involving the distal esophagus or the stomach. Chest X-Ray 08/09/18 16:00 CONCLUSION: Left lung base opacity is present may be due to a combination of consolidation and or pleural effusion. Chest X-Ray 08/11/18 06:00 CONCLUSION: No significant change Chest X-Ray 08/13/18 18:15 CONCLUSION: Left chest tube out. No pneumothorax. Trace left base atelectasis. Chest X-Ray 08/14/18 07:00 CONCLUSION: Left base consolidation and small effusion Discharge Plan Discharge Disposition Patient Disposition: Discharge Home Discharge Condition Condition: Stable Discharge Order Discharge Orders: Discharge Order (Routine); Ordered 08/14/18 Ordered By: Betty Woo Discharge Details Anticipated Discharge Date: 08/14/18 Discharge Comment: F/U with Dr Matthews on 08/20/18 at previously scheduled appt Resume your home insulin pump regimen on discharge Physicians Team Primary Care Provider: UNKNOWN, Attending Provider: Brandon Nuno Other Providers: Nicolas Beard ; Amberly Villalobos ; Brandon Nuno Rxs /Orders / Referrals /Forms Prescriptions: Continue promethazine [Phenergan] 25 mg Suppository 25 mg WI Q6H PRN (Reason: Wheezing) RF: 0 omeprazole 40 mg Capsule,Delayed Release(Dr/Ec) 40 mg PO DAILY RF: 0 levothyroxine 100 mcg Tablet 100 mcg PO DAILY RF: 0 simvastatin 5 mg Tablet 5 mg PO QPM RF: 0 lisinopril 5 mg Tablet 5 mg PO DAILY RF: 0 albuterol sulfate [Ventolin HFA] 90 mcg/actuation Hfa Aerosol Inhaler Inhalation Q4HR RF: 0 sertraline [Zoloft] 50 mg Tablet 75 mg PO DAILY RF: 0 Referrals: Nicolas Beard MD [Physician] - 08/20/18 12:00 am Jessica Maria MD [Family Provider] - See Instructions UNKNOWN, [Primary Care Provider] - See Instructions Discharge Instructions Patient Printed Instructions: Diabetic Gastroparesis (GEN), Diabetic Ketoacidosis (GEN), Fundoplication in Adults (DC) Additional Instructions: Keep or make your follow up appointments as directed by your providers. Take medications as directed. Continue to monitor blood glucose levels.
== END 2018-08-14 13:44 | disposition home or self-care (01) ==
LOC: NEPFCDU 17:32 → INTOOBSV 17:32 → N04 08-07 12:14 → N03 08-08 16:18 → N06 08-09 16:30
PROVIDERS: ADMIT Hospitalist; ATTEND Hospitalist
DX: J93.9 Pneumothorax, unspecified; E10.649 Type 1 diabetes mellitus with hypoglycemia without coma; Z79.899 Other long term (current) drug therapy; F32.9 Major depressive disorder, single episode, unspecified; K44.0 Diaphragmatic hernia with obstruction, without gangrene; K21.9 Gastro-esophageal reflux disease without esophagitis; E06.3 Autoimmune thyroiditis; K91.71 Accidental puncture and laceration of a digestive system organ or structure during a digestive system procedure; Z96.41 Presence of insulin pump (external) (internal); K22.2 Esophageal obstruction; Z79.4 Long term (current) use of insulin; J45.909 Unspecified asthma, uncomplicated; G47.33 Obstructive sleep apnea (adult) (pediatric); Z87.891 Personal history of nicotine dependence